=== PATIENT | male | born 1965 | race Hispanic/Latino ===

== ENCOUNTER 2017-01-07 11:34 | Emergency (ER) | payer MEDICAID ==
[2017-01-07 11:43] VITALS: TEMP 98.1
[2017-01-07 11:44] VITALS: BMI 39.5
[2017-01-07] MEDS ORDERED: Levalbuterol 1.25 MG/3 ML Inhal Soln UD IH STA ×3 (11:58→13:09)
[2017-01-07] MEDS ORDERED: guaiFENesin 200 mg/10 ml Syrup UD PO STA (11:58)
[2017-01-07] MEDS ORDERED: Ipratropium 0.02% Inhal Soln (0.5 mg/2.5 ml) UD IH STA ×2 (11:58→13:09)
--- NOTE | 2017-01-07 12:01 | ED PDOC ---
Arrival/HPI - General Chief Complaint: Chest Pain Time Seen by Provider: 01/07/17 11:45 Historian: Patient - History of Present Illness Narrative History of Present Illness (Text): 01/07/17 11:57 A 51 year old male, whose past medical history includes COPD, chronic bilateral lower extremity edema, and chronic bilateral knee pain on Methadone, presents to the emergency department complaining of chest tightness since this morning. Patient was seen at clinic prior to arrival and sent here for further evaluation. Patient reports a cough but denies any fever, chills, nausea, vomiting, abdominal pain, shortness of breath, headache, dizziness or any other complaints. Time/Duration: Other (this morning) Symptom Course: Unchanged Quality: Other Past Medical History - Provider Review Nursing Documentation Reviewed: Yes - Infectious Disease Hx of Infectious Diseases: None - Tetanus Immunization Tetanus Immunization: Unknown - Cardiac Hx Peripheral Edema: Yes - Pulmonary Hx Asthma: Yes Hx Chronic Obstructive Pulmonary Disease (COPD): Yes Hx Emphysema: Yes - Hematological/Oncological Other/Comment: lupus, itp - Musculoskeletal/Rheumatological Hx Arthritis: Yes (hand legs elbows joints) - Psychiatric Hx Psychophysiologic Disorder: No Hx Substance Use: Yes (8yrs clean) - Past Surgical History Past Surgical History: No Previous - Surgical History Other/Comment: 200 stitches to left hand, pt was 9 yrs old and fell holding a glass, can't bend index finger - Anesthesia Hx Anesthesia: Yes Hx Anesthesia Reactions: No Hx Malignant Hyperthermia: No - Suicidal Assessment Feels Threatened In Home Enviroment: No Family/Social History - Physician Review Nursing Documentation Reviewed: Yes Family/Social History: No Known Family HX Smoking Status: Light Smoker < 10 Cigarettes Daily 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) Substance used: herion Hx Substance Use Treatment: No Allergies/Home Meds Allergies/Adverse Reactions: Allergies Penicillins Allergy (Verified 01/07/17 11:41) ANAPHYLAXIS Home Medications: Home Meds Medication Instructions Recorded Confirmed Methadone HCl [Methadone HCl] 170 mg PO DAILY 01/07/17 01/07/17 Review of Systems - Physician Review All systems were reviewed & negative as marked: Yes - Review of Systems Constitutional: absent: Fevers, Night Sweats Respiratory: Cough. absent: SOB Cardiovascular: Chest Pain (tightness) Gastrointestinal: absent: Abdominal Pain, Nausea, Vomiting Neurological: absent: Headache, Dizziness Physical Exam Vital Signs Reviewed: Yes Vital Signs Temp Pulse Resp BP Pulse Ox 01/07/17 13:53 83 16 132/79 95 01/07/17 11:34 98.1 F 76 20 143/99 H 94 L Temperature: Afebrile Blood Pressure: Hypertensive Pulse: Regular Respiratory Rate: Normal Appearance: Positive for: Non-Toxic, Comfortable, Other (Morbidly obese white male) Pain Distress: None Mental Status: Positive for: Alert and Oriented X 3 - Systems Exam Head: Present: Atraumatic, Normocephalic Pupils: Present: PERRL Conjunctiva: Present: Normal Mouth: Present: Moist Mucous Membranes Pharnyx: Present: Normal. No: ERYTHEMA, EXUDATE Neck: Present: Normal Range of Motion Respiratory/Chest: Present: Wheezes (Diffuse wheezing bilaterally), Rhonchi ( Scattered rhonchi). No: Respiratory Distress, Accessory Muscle Use Cardiovascular: Present: Regular Rate and Rhythm, Normal S1, S2. No: Murmurs Abdomen: Present: Normal Bowel Sounds. No: Tenderness, Distention, Peritoneal Signs Upper Extremity: Present: Normal Inspection. No: Cyanosis, Edema Lower Extremity: Present: Normal Inspection. No: Edema, CALF TENDERNESS Neurological: Present: GCS=15, CN II-XII Intact, Speech Normal Skin: Present: Warm, Dry, Normal Color. No: Rashes Psychiatric: Present: Alert, Oriented x 3, Normal Insight, Normal Concentration Medical Decision Making ED Course and Treatment: 01/07/17 11:57 Impression: A 51 year old male with chest tightness and cough. Differential: Asthma vs ACS vs muscular pain vs anxiety Plan: -- Chest xray -- Labs -- Robitussin, Atrovent, Xopenex and Solumedrol -- Reassess and disposition Progress Notes: Report Date : 01/07/2017 13:02:13 Procedure: Chest xray Dictator : Darryl Brannon MD IMPRESSION: No active disease. 01/07/17 15:28 Patient with noted history with chest pain but diffuse wheezing; he was given steroids and nebs and lungs cleared up and says feels better. First set of CE is negative. EKG is unremarkable. However patient with poor follow up and is morbidly obese and smoker, so concern for ACS is still present and will been further observation on ER and potential tele, however he is refusing to stay for further eval and treatment; he is choosing to leave against medical advice, understanding the risk, including heart attack, , or permanent disability, and signed the ama sheet. He is fully awake, alert, and oriented as he makes this decision with fully understanding of risks and consequences of his decision. He says he will follow up outpatient and return if he worsens. Will be d/c on steroids and albuterol. - Lab Interpretations Lab Results: 01/07/17 12:00 01/07/17 12:00 Lab Results 01/07/17 13:55: Urine Opiates Screen Negative, Urine Methadone Screen Positive H , Ur Barbiturates Screen Negative, Ur Phencyclidine Scrn Negative, Ur Amphetamines Screen Negative, U Benzodiazepines Scrn Negative, U Oth Cocaine Metabols Negative, U Cannabinoids Screen Negative 01/07/17 12:00: Sodium 141, Potassium 4.3, Chloride 102, Carbon Dioxide 30, Anion Gap 13, BUN 10, Creatinine 0.7 L, Est GFR ( Amer) > 60, Est GFR ( Non-Af Amer) > 60, Random Glucose 101, Calcium 9.2, Magnesium 1.9, Total Bilirubin 0.6, AST 27, ALT 38, Alkaline Phosphatase 82, Lactate Dehydrogenase 497, Total Creatine Kinase 95, Troponin I < 0.01, NT-Pro-B Natriuret Pep 68.7, Total Protein 8.0, Albumin 4.3, Globulin 3.7, Albumin/Globulin Ratio 1.2, Lipase 56 01/07/17 12:00: PT 11.1, INR 1.01, APTT 30.8 01/07/17 12:00: WBC 8.0, RBC 4.33, Hgb 13.9 L, Hct 40.4 L, MCV 93.3, MCH 32.1, MCHC 34.4, RDW 12.4, Plt Count 200, MPV 11.2 H, Gran % 65.9, Lymph % (Auto) 21.6 L, Davie % (Auto) 7.7 H, Eos % (Auto) 4.4, Baso % (Auto) 0.4, Gran # 5.28, Lymph # 1.7, Davie # 0.6, Eos # 0.4, Baso # 0.03 I have reviewed the lab results: Yes - RAD Interpretation Radiology Orders: 01/07/17 11:57 CHEST PORTABLE [RAD] Stat - EKG Interpretation EKG Interpretation (Text): 01/07/17 15:35 NSR @ 73; no ST/T changes; normal intervals; normal axis. - Medication Orders Current Medication Orders: Discontinued Medications Guaifenesin (Robitussin) 600 mg PO ONCE STA Stop: 01/07/17 11:59 Last Admin: 01/07/17 12:16 Dose: 600 mg Ipratropium Allen (Atrovent) 0.5 mg IH STAT STA Stop: 01/07/17 11:59 Last Admin: 01/07/17 12:17 Dose: 0.5 mg Ipratropium Allen (Atrovent) 0.5 mg IH STAT STA Stop: 01/07/17 13:10 Last Admin: 01/07/17 13:20 Dose: 0.5 mg Levalbuterol HCl (Xopenex) 1.25 mg IH STAT STA Stop: 01/07/17 11:59 Last Admin: 01/07/17 12:27 Dose: 1.25 mg Levalbuterol HCl (Xopenex) 1.25 mg IH STAT STA Stop: 01/07/17 11:59 Last Admin: 01/07/17 12:27 Dose: 1.25 mg Levalbuterol HCl (Xopenex) 1.25 mg IH STAT STA Stop: 01/07/17 13:10 Last Admin: 01/07/17 13:33 Dose: 1.25 mg Methylprednisolone (Solu-Medrol) 125 mg IVP STAT STA Stop: 01/07/17 11:59 Last Admin: 01/07/17 12:17 Dose: 125 mg IVP Administration Document 01/07/17 12:17 CNR (Rec: 01/07/17 12:17 CNR [id number] Charges for Administration # of IVP Administrations 1 - Scribe Statement The provider has reviewed the documentation as recorded by the Scribjeana Davenport Provider Scribe Attestation: All medical record entries made by the Scribe were at my direction and personally dictated by me. I have reviewed the chart and agree that the record accurately reflects my personal performance of the history, physical exam, medical decision making, and the department course for this patient. I have also personally directed, reviewed, and agree with the discharge instructions and disposition. Disposition/Present on Arrival - Present on Arrival Any Indicators Present on Arrival: No History of DVT/PE: No History of Uncontrolled Diabetes: No Urinary Catheter: No History of Decub. Ulcer: No History Surgical Site Infection Following: None - Disposition Have Diagnosis and Disposition been Completed?: Yes Diagnosis: Chest pain, Asthma exacerbation Disposition: AGAINST MEDICAL ADVICE Disposition Time: 15:20 Patient Plan: Other (AGAINST MEDICAL ADVICE) Condition: STABLE Discharge Instructions (ExitCare): Chest Pain (ED), Asthma (ED), How to Stop Smoking (ED) Additional Instructions: Stop smoking. You are leaving against medical advice. You may return to the emergency department at any time. If you choose not to do so, then follow up with primary care and cardiology as soon as possible. Otherwise take the medications as prescribed. Prescriptions: Albuterol HFA [Ventolin HFA 90 mcg/actuation (8 g)] 2 puff IH Q4H #1 inhaler predniSONE [Prednisone] 2 tab PO DAILY #10 tab Referrals: [facility] [place] - Follow up with primary Forms: [employer] (Lao)
[2017-01-07 12:22] LABS: BASO # 0.03 K/mm3 (0.0-2.0); BASO % 0.4 % (0.0-3.0); EOS # 0.4 (0.0-0.7); EOS % 4.4 % (1.5-5.0); GRAN # 5.28 (1.4-6.5); GRAN % 65.9 % (50.0-68.0); HEMATOCRIT 40.4 % (42.0-52.0); LYMPH # 1.7 (1.2-3.4); LYMPH % 21.6 % (22.0-35.0); MEAN CELL VOLUME 93.3 fl (80.0-105.0); MEAN CORPUSCULAR HEMOGLOBIN 32.1 pg (25.0-35.0); MEAN CORPUSCULAR HGB CONC 34.4 g/dl (31.0-37.0); MEAN PLATELET VOLUME 11.2 fl (7.0-11.0); MONO # 0.6 (0.1-0.6); MONO % 7.7 % (1.0-6.0); RED CELL DISTRIBUTION WIDTH 12.4 % (11.5-14.5)
[2017-01-07 12:30] LABS: INR 1.01 (0.93-1.08); PARTIAL THROMBOPLASTIN TIME 30.8 Seconds (25.1-36.5)
[2017-01-07 12:33] LABS: ALB/GLOB RATIO 1.2 (1.1-1.8); ALKALINE PHOSPHATASE 82 U/L (38-126); ALT/SGPT 38 U/L (7-56); AST/SGOT 27 U/L (17-59); BILIRUBIN,TOTAL 0.6 mg/dL (0.2-1.3); BLOOD UREA NITROGEN 10 mg/dL (7-21); CALCIUM 9.2 mg/dL (8.4-10.5); CARBON DIOXIDE 30 mmol/L (21-33); CHLORIDE 102 mmol/L (98-107); GFR AFRICAN-AMERICAN > 60; GLUCOSE,RANDOM 101 mg/dL (70-110); LIPASE 56 U/L (23-300); MAGNESIUM 1.9 mg/dL (1.7-2.2); POTASSIUM 4.3 mmol/L (3.6-5.0); SODIUM 141 mmol/L (132-148)
[2017-01-07 12:45] LABS: TROPONIN I < 0.01 ng/mL
--- NOTE | 2017-01-07 13:03 | RAD ---
HISTORY: cp COMPARISON: 07/10/2014 FINDINGS: LUNGS: No active pulmonary disease. PLEURA: No significant pleural effusion identified, no pneumothorax apparent. CARDIOVASCULAR: Normal. OSSEOUS STRUCTURES: No significant abnormalities. VISUALIZED UPPER ABDOMEN: Normal. OTHER FINDINGS: None. IMPRESSION: No active disease.
[2017-01-07 13:54] VITALS: RESP 16
[2017-01-07 15:23] VITALS: BP 140/87; PULSE 89; O2SAT 93
--- NOTE | 2017-01-07 16:51 | CARD ---
APPROVED REPORT EKG Measurement Heart [id number] MI 172P-1 [id number] <Conclusion> Normal sinus rhythm Normal ECG
== END 2017-01-07 15:32 | disposition left against medical advice (07) ==
LOC: ED 11:34
DX: R07.9 Chest pain, unspecified (principal); J45.901 Unspecified asthma with (acute) exacerbation; M32.9 Systemic lupus erythematosus, unspecified; Z88.0 Allergy status to penicillin; F17.210 Nicotine dependence, cigarettes, uncomplicated; E66.01 Morbid (severe) obesity due to excess calories
CPT/HCPCS: 71010; 80053; 80324; 80345; 80346; 80349; 80353; 80358; 80361; 82550; 83615; 83690; 83735; 83880; 83992; 84484; 85025; 85610; 85730; 93005; 96374; 99285; J2930

== ENCOUNTER 2017-04-13 12:42 | Emergency (ER) | payer MEDICAID ==
[2017-04-13 12:42] VITALS: BMI 39.5
--- NOTE | 2017-04-13 13:23 | ED PDOC ---
Arrival/HPI - General Chief Complaint: Lower Extremity Problem/Injury Time Seen by Provider: 04/13/17 13:12 Historian: Patient, Family - History of Present Illness Narrative History of Present Illness (Text): 04/13/17 13:15 Anthony Boothe is a 51 year old male, whose past medical history includes COPD and arthritis, who presents to the emergency department complaining of right leg pain, mainly on the knee area that has become worse these past couple of days. Patient reports the pain radiates to his lower back and is worse when putting weight on the leg. Patient also complaints of shortness of breath. No other complaints were made. Time/Duration: < week Symptom Onset: Gradual Symptom Course: Worsening Activities at Onset: Light Past Medical History - Provider Review Nursing Documentation Reviewed: Yes - Infectious Disease Hx of Infectious Diseases: None - Tetanus Immunization Tetanus Immunization: Unknown - Cardiac Hx Peripheral Edema: Yes - Pulmonary Hx Asthma: Yes Hx Chronic Obstructive Pulmonary Disease (COPD): Yes Hx Emphysema: Yes - Hematological/Oncological Other/Comment: lupus, itp - Musculoskeletal/Rheumatological Hx Arthritis: Yes (hand legs elbows joints) - Psychiatric Hx Psychophysiologic Disorder: No Hx Substance Use: Yes (8yrs clean) - Past Surgical History Past Surgical History: No Previous - Surgical History Other/Comment: 200 stitches to left hand, pt was 9 yrs old and fell holding a glass, can't bend index finger - Anesthesia Hx Anesthesia: Yes Hx Anesthesia Reactions: No Hx Malignant Hyperthermia: No - Suicidal Assessment Feels Threatened In Home Enviroment: No Family/Social History - Physician Review Nursing Documentation Reviewed: Yes Family/Social History: Unknown Family HX Smoking Status: Light Smoker < 10 Cigarettes Daily 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) Substance used: herion Hx Substance Use Treatment: No Allergies/Home Meds Allergies/Adverse Reactions: Allergies Penicillins Allergy (Verified 04/13/17 13:11) ANAPHYLAXIS Review of Systems - Physician Review All systems were reviewed & negative as marked: Yes - Review of Systems Constitutional: absent: Fevers Respiratory: SOB Cardiovascular: absent: Chest Pain Gastrointestinal: absent: Abdominal Pain Musculoskeletal: Other (right leg pain ) Physical Exam Vital Signs Reviewed: Yes Vital Signs Temp Pulse Resp BP Pulse Ox 04/13/17 15:01 162/90 H 04/13/17 13:08 97.9 F 78 18 164/93 H 96 Temperature: Afebrile Blood Pressure: Hypertensive Pulse: Regular Respiratory Rate: Normal Appearance: Positive for: Well-Appearing, Non-Toxic, Comfortable Pain Distress: None Mental Status: Positive for: Alert and Oriented X 3 - Systems Exam Head: Present: Atraumatic, Normocephalic Pupils: Present: PERRL Extroacular Muscles: Present: EOMI Conjunctiva: Present: Normal Mouth: Present: Moist Mucous Membranes Respiratory/Chest: Present: Good Air Exchange, Other (congestion bilaterally). No: Clear to Auscultation, Respiratory Distress, Accessory Muscle Use Cardiovascular: Present: Regular Rate and Rhythm, Normal S1, S2. No: Murmurs Abdomen: Present: Normal Bowel Sounds. No: Tenderness, Distention, Peritoneal Signs Upper Extremity: Present: Normal Inspection. No: Cyanosis, Edema Lower Extremity: Present: Edema (bilateral), NORMAL PULSES, Normal ROM, Tenderness (diffused tenderness to palpation bilaterally), Swelling, Neurovascularly Intact, Capillary Refill < 2 s. No: Normal Inspection, Cyanosis , Erythema, Deformity Neurological: Present: GCS=15, CN II-XII Intact, Speech Normal Skin: Present: Warm, Dry, Normal Color. No: Rashes Psychiatric: Present: Alert, Oriented x 3, Normal Insight, Normal Concentration Medical Decision Making ED Course and Treatment: 04/13/17 Impression: 51 year old male with edema and bilaterally diffused tenderness to palpation on lower extremities Plan: -- Labs -- Reassess and disposition Progress Notes: - Lab Interpretations Lab Results: 04/13/17 14:00 04/13/17 14:00 Lab Results 04/13/17 14:00: Sodium 145, Potassium 4.4, Chloride 105, Carbon Dioxide 27, Anion Gap 17, BUN 16, Creatinine 0.6 L, Est GFR ( Amer) > 60, Est GFR ( Non-Af Amer) > 60, Random Glucose 120 H, Calcium 9.0, Total Bilirubin 0.4, AST 36, ALT 39, Alkaline Phosphatase 71, Total Protein 8.0, Albumin 4.2, Globulin 3.7, Albumin/Globulin Ratio 1.1 04/13/17 14:00: WBC Cancelled, RBC Cancelled, Hgb Cancelled, Hct Cancelled, MCV Cancelled, MCH Cancelled, MCHC Cancelled, RDW Cancelled, Plt Count Cancelled, MPV Cancelled, Gran % Cancelled, Lymph % (Auto) Cancelled, Orange % (Auto) Cancelled, Eos % (Auto) Cancelled, Baso % (Auto) Cancelled, Gran # Cancelled, Lymph # (Auto) Cancelled, Orange # (Auto) Cancelled, Eos # (Auto) Cancelled, Baso # (Auto) Cancelled I have reviewed the lab results: Yes - RAD Interpretation Radiology Orders: 04/13/17 13:34 DUPLEX LOWER EXTRM VEIN BILAT [US] Stat 04/13/17 13:35 CHEST ONE VIEW [RAD] Stat - Medication Orders Current Medication Orders: Discontinued Medications Albuterol Sulfate (Albuterol 0.083% Inhal Cynthia (2.5 Mg/3 Ml) Ud) 2.5 mg INH STAT STA Stop: 04/13/17 13:37 Last Admin: 04/13/17 15:01 Dose: 2.5 mg Furosemide (Lasix) 40 mg IM STAT STA Stop: 04/13/17 14:12 Last Admin: 04/13/17 15:01 Dose: 40 mg MAR Blood Pressure Document 04/13/17 15:01 ROGER (Rec: 04/13/17 15:02 ROGER [id number]) Blood Pressure Blood Pressure (100/60-150/90) 162/90 IM Administration Charges Document 04/13/17 15:01 ROGER (Rec: 04/13/17 15:02 ROGER [id number]) Charges for Administration # of IM Administrations 1 Tramadol HCl (Ultram) 50 mg PO STAT STA Stop: 04/13/17 13:38 Last Admin: 04/13/17 15:03 Dose: 50 mg MAR Pain Assessment Document 04/13/17 15:03 ROGER (Rec: 04/13/17 15:03 ROGER [id number]) Pain Reassessment Is this a pain reassessment? No Sleep Is patient sleeping during reassessment? No Presence of Pain Presence of Pain Yes - Scribe Statement The provider has reviewed the documentation as recorded by the Scribe Asuncion Abad Provider Scribe Attestation: All medical record entries made by the Scribe were at my direction and personally dictated by me. I have reviewed the chart and agree that the record accurately reflects my personal performance of the history, physical exam, medical decision making, and the department course for this patient. I have also personally directed, reviewed, and agree with the discharge instructions and disposition. Disposition/Present on Arrival - Present on Arrival Any Indicators Present on Arrival: No History of DVT/PE: No History of Uncontrolled Diabetes: No Urinary Catheter: No History of Decub. Ulcer: No History Surgical Site Infection Following: None - Disposition Have Diagnosis and Disposition been Completed?: Yes Diagnosis: Peripheral edema, Arthritis Disposition: HOME/ ROUTINE Disposition Time: 15:30 Patient Plan: Discharge Patient Problems: Current Active Problems Problem Status Onset Arthritis Acute Peripheral edema Acute Condition: STABLE Prescriptions: Albuterol HFA [Ventolin HFA 90 mcg/actuation (8 g)] 2 puff IH [id number] PRN #1 puff PRN Reason: Cough Budesonide/Formoterol Fumarate [Symbicort 80-4.5 Mcg Inhaler] 6.9 gm IH BID #1 hfa.aer.ad Furosemide [Lasix] 20 mg PO DAILY #10 udc traMADol [Ultram] 50 mg PO TID PRN #20 tab PRN Reason: Pain, Moderate (4-7) Referrals: Jose Chou Jr., MD [Primary Care Provider] - Follow up with primary Forms: [employer] (Spanish)
[2017-04-13] MEDS ORDERED: Albuterol 0.083% Inhal Sol (2.5 mg/3 mL) UD INH STA (13:36)
[2017-04-13 14:28] LABS: ALB/GLOB RATIO 1.1 (1.1-1.8); ALBUMIN 4.2 g/dL (3.0-4.8); GFR AFRICAN-AMERICAN > 60; GFR NON-AFRICAN AMERICAN > 60
[2017-04-13 14:29] LABS: ALT/SGPT 39 U/L (7-56); AST/SGOT 36 U/L (17-59); BLOOD UREA NITROGEN 16 mg/dL (7-21)
[2017-04-13 15:43] VITALS: BP 147/90; PULSE 89; RESP 20; TEMP 97.8; O2SAT 94
--- NOTE | 2017-04-13 15:44 | RAD ---
PROCEDURE: CHEST RADIOGRAPH, 1 VIEW HISTORY: sob COMPARISON: 01/07/2017 FINDINGS: LUNGS: Clear. PLEURA: No pneumothorax or pleural fluid seen. CARDIOVASCULAR: Normal. OSSEOUS STRUCTURES: No significant abnormalities. VISUALIZED UPPER ABDOMEN: Normal. OTHER FINDINGS: None. IMPRESSION: No active disease.
--- NOTE | 2017-04-13 17:52 | CARD ---
APPROVED REPORT EKG Measurement Heart [id number] [id number] <Conclusion> Normal sinus rhythm Normal ECG
--- NOTE | 2017-04-14 15:29 | US ---
HISTORY: Leg pain and swelling. Evaluate for DVT PHYSICIAN(S): Nelson Stoddard MD. TECHNIQUE: Duplex sonography and color-flow Doppler with graded compression were used to evaluate the deep venous systems of both lower extremities. The exam is somewhat limited by body habitus. FINDINGS: The visualized deep venous systems of both lower extremities are sonographically normal and compressible. Normal wave forms and augmentation are seen. There is no sonographic evidence for deep venous thrombosis in the visualized segments of both lower extremities. IMPRESSION: No sonographic evidence for deep venous thrombosis in the visualized segments of both lower extremities.
== END 2017-04-13 15:44 | disposition home or self-care (01) ==
LOC: ED 12:42
DX: R60.0 Localized edema (principal); M19.90 Unspecified osteoarthritis, unspecified site; M32.9 Systemic lupus erythematosus, unspecified; F17.210 Nicotine dependence, cigarettes, uncomplicated
CPT/HCPCS: 71045; 80053; 93005; 93970; 96372; 99282; J1940

== ENCOUNTER 2017-06-07 07:23 | Observation (INO) | payer MEDICAID ==
[2017-06-07 07:24] VITALS: BMI 39.5
[2017-06-07] MEDS ORDERED: DiphenhydrAMINE 50 mg/ml Inj IVP STA (07:46)
--- NOTE | 2017-06-07 07:55 | ED PDOC ---
Arrival/HPI - General Historian: Patient - History of Present Illness Time/Duration: 24 hours Symptom Course: Worsening Quality: Tightness <Felton Rizo - Last Filed: 06/07/17 09:48> <Roland Cabrera - Last Filed: 06/07/17 11:01> - General Chief Complaint: ENT Problem Time Seen by Provider: 06/07/17 07:26 - History of Present Illness Narrative History of Present Illness (Text): 06/07/17 07:49 Patient is a 51M with a PMH of COPD and chronic lower extremity edema comes to the ED BIBA with a CC of burning in his throat and worsening SOB. He states that he woke up with the feelnig of bur nnign in his through and noticed that his uvula was abnormally large. This has happened to him one time before. He states that he felt as if it might obstruct his airway. He is also complaining of worsening SOB for 2 weeks and attributes it to worsening of his COPD. He thinks he needs to be on home O2. He denies any worsening of the lower extremity edema. He states he has chest tightness for many years associated with his SOB. No fevers or chills. No nausea vomiting diarrhea. No diaphoresis. No rashes. Just traveled from [place]. Denies any allergic triggers 06/07/17 08:19 Patient admits to being on methadone 170 daily (Felton Rioz) Past Medical History - Infectious Disease Hx of Infectious Diseases: None - Tetanus Immunization Tetanus Immunization: Unknown - Cardiac Hx Cardiac Disorders: Yes Hx Peripheral Edema: Yes - Pulmonary Hx Respiratory Disorders: Yes Hx Asthma: Yes Hx Chronic Obstructive Pulmonary Disease (COPD): Yes Hx Emphysema: Yes - Neurological Hx Neurological Disorder: No - HEENT Hx HEENT Disorder: No - Renal Hx Renal Disorder: No - Endocrine/Metabolic Hx Endocrine Disorders: No - Hematological/Oncological Hx Blood Disorders: No Other/Comment: lupus, itp - Integumentary Hx Dermatological Disorder: No - Musculoskeletal/Rheumatological Hx Musculoskeletal Disorders: Yes Hx Arthritis: Yes (hand legs elbows joints) - Gastrointestinal Hx Gastrointestinal Disorders: Yes - Genitourinary/Gynecological Hx Genitourinary Disorders: No - Psychiatric Hx Psychophysiologic Disorder: No Hx Substance Use: Yes (8yrs clean) - Past Surgical History Past Surgical History: No Previous - Surgical History Other/Comment: 200 stitches to left hand, pt was 9 yrs old and fell holding a glass, can't bend index finger - Anesthesia Hx Anesthesia: Yes Hx Anesthesia Reactions: No Hx Malignant Hyperthermia: No - Suicidal Assessment Feels Threatened In Home Enviroment: No <SallieFelton Last Filed: 06/07/17 09:48> - Provider Review Nursing Documentation Reviewed: Yes <Roland Cabrera - Last Filed: 06/07/17 11:01> Family/Social History Family/Social History: Unknown Family HX Smoking Status: Light Smoker < 10 Cigarettes Daily Hx Alcohol Use: No (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) Substance used: herion Hx Substance Use Treatment: No <SallieFelton Filed: 06/07/17 09:48> - Physician Review Nursing Documentation Reviewed: Yes <Roland Cabrera - Last Filed: 06/07/17 11:01> Allergies/Home Meds <SallieFelton Filed: 06/07/17 09:48> <Roland Cabrera - Last Filed: 06/07/17 11:01> Allergies/Adverse Reactions: Allergies Penicillins Allergy (Verified 04/13/17 13:11) ANAPHYLAXIS Review of Systems - Review of Systems Constitutional: Normal Eyes: Normal ENT: Normal Respiratory: Cough, Wheezing Cardiovascular: Edema. absent: Chest Pain, Calf Pain, Syncope Gastrointestinal: absent: Diarrhea, Nausea, Vomiting Genitourinary Male: Normal Musculoskeletal: Normal Skin: Normal Neurological: Normal Endocrine: Normal Hemo/Lymphatic: Normal Psychiatric: Normal <SallieFelton Filed: 06/07/17 09:48> Physical Exam Vital Signs Reviewed: Yes Temperature: Afebrile Blood Pressure: Hypertensive Pulse: Tachycardic Respiratory Rate: Normal Appearance: Positive for: Uncomfortable Pain Distress: None Mental Status: Positive for: Alert and Oriented X 3 - Systems Exam Head: Present: Atraumatic, Normocephalic Pupils: Present: PERRL Extroacular Muscles: Present: EOMI Conjunctiva: Present: Normal Ears: Present: Normal Pharnyx: Present: Muffled/Hoarse Voice, Soft Palate/Uvular Edema. No: ERYTHEMA , EXUDATE, TONSILS ENLARGED, Peritonsilar Swelling, Uvular Deviation, Strider Respiratory/Chest: Present: Good Air Exchange, Wheezes (all of expiration). No : Clear to Auscultation, Respiratory Distress, Accessory Muscle Use Cardiovascular: Present: Regular Rate and Rhythm, Normal S1, S2. No: Murmurs Abdomen: Present: Normal Bowel Sounds. No: Tenderness, Distention, Peritoneal Signs Upper Extremity: Present: Normal Inspection. No: Cyanosis, Edema Lower Extremity: Present: Normal Inspection, Edema (2+ pitting b/l) Neurological: Present: GCS=15, CN II-XII Intact, Speech Normal Skin: Present: Warm, Dry, Rashes, Normal Color Psychiatric: Present: Alert, Oriented x 3, Normal Insight, Normal Concentration <Felton Rizo - Last Filed: 06/07/17 09:48> <Roland Cabrera - Last Filed: 06/07/17 11:01> Vital Signs Temp Pulse Resp BP Pulse Ox 06/07/17 10:53 79 18 137/81 93 L 06/07/17 09:34 83 21 132/75 91 L 06/07/17 08:48 94 H 18 147/97 H 96 06/07/17 08:30 98 H 18 165/71 H 96 06/07/17 07:36 98.0 F 100 H 20 168/73 H 95 Medical Decision Making <Felton Rizo - Last Filed: 06/07/17 09:48> - Lab Interpretations I have reviewed the lab results: Yes - RAD Interpretation Baseball Glove Shaper: Radiologist - EKG Interpretation Interpreted by ED Physician: Yes Type: 12 lead EKG <Roland Cabrera - Last Filed: 06/07/17 11:01> ED Course and Treatment: 06/07/17 07:59 51M COPD exacerbation and Uvulitis - benadryl 25mg IV - solumedrol 125 IV - duonebs q15 x3 - cxc, ekg, cbc, cmp, cardiac iso - reeval and dispo 06/07/17 09:03 - CXR shows possible blunting of the L. costophrenic angle 06/07/17 09:37 - Official read on CXR states no inflitrate 06/07/17 09:48 - Spoke with hospitalist. Ok with admission to [facility] (Felton Rizo) 06/07/17 In agreement with resident note, which includes further HPI details. Patient was seen and evaluated with resident, came up with plan and treatment together. DDx: COPD Exacerbation and Uvulitis. CXR negative. Labs reviewed. Rapid strep and Influenza negative. Patient improving but still having symptoms despite treatment. Case was discussed with Dr. Khan who will place on med/surg observation. (Roland Cabrera) - Lab Interpretations Lab Results: 06/07/17 08:36 06/07/17 08:36 Lab Results 06/07/17 09:30: Grp A Beta Strep Ag Negative 06/07/17 09:30: Influenza Typ A,B (EIA) Negative for flu a/b 06/07/17 08:36: Sodium 141, Potassium 4.3, Chloride 104, Carbon Dioxide 30, Anion Gap 12, BUN 18, Creatinine 0.7 L, Est GFR ( Amer) > 60, Est GFR ( Non-Af Amer) > 60, Random Glucose 107, Calcium 9.1, Magnesium 1.9, Total Bilirubin 0.4, AST 32, ALT 49, Alkaline Phosphatase 86, Lactate Dehydrogenase 604, Total Creatine Kinase 118, Troponin I < 0.01, NT-Pro-B Natriuret Pep 17.2, Total Protein 8.0, Albumin 4.1, Globulin 3.9, Albumin/Globulin Ratio 1.0 L 06/07/17 08:36: WBC 8.7, RBC 4.40, Hgb 14.0, Hct 41.8 L, MCV 95.0, MCH 31.8, MCHC 33.5, RDW 12.6, Plt Count 149, MPV 11.4 H, Gran % 69.4 H, Lymph % (Auto) 22.1, Cavalier % (Auto) 5.7, Eos % (Auto) 2.5, Baso % (Auto) 0.3, Gran # 6.00, Lymph # (Auto) 1.9, Cavalier # (Auto) 0.5, Eos # (Auto) 0.2, Baso # (Auto) 0.03 - RAD Interpretation Radiology Orders: 06/07/17 07:46 CHEST PORTABLE [RAD] Stat - Medication Orders Current Medication Orders: Acetaminophen (Tylenol 325mg Tab) 650 mg PO Q6 PRN PRN Reason: Pain, moderate (4-7) Heparin Sodium (Porcine) (Heparin) 5,000 units SC Q12 ROSY PRN Reason: Protocol Pantoprazole Sodium (Protonix Ec Tab) 40 mg PO DAILY ROSY Discontinued Medications Albuterol/Ipratropium (Duoneb 3 Mg/0.5 Mg (3 Ml) Ud) 3 ml IH Q15M ROSY Stop: 06/07/17 08:31 Last Admin: 06/07/17 08:51 Dose: 3 ml Diphenhydramine HCl (Benadryl) 25 mg IVP STAT STA Stop: 06/07/17 07:47 Last Admin: 06/07/17 08:20 Dose: 25 mg IVP Administration Document 06/07/17 08:20 OCS (Rec: 06/07/17 08:20 OCS [id number]) Charges for Administration # of IVP Administrations 1 Diphenhydramine HCl (Benadryl) 25 mg PO STAT STA Stop: 06/07/17 09:10 Last Admin: 06/07/17 09:34 Dose: 25 mg Methylprednisolone (Solu-Medrol) 125 mg IVP STAT STA Stop: 06/07/17 07:47 Last Admin: 06/07/17 08:20 Dose: 125 mg IVP Administration Document 06/07/17 08:20 OCS (Rec: 06/07/17 08:20 OCS [id number]) Charges for Administration # of IVP Administrations 1 - PA / ELECTRICIAN FRONT / Resident Statement / has reviewed & agrees with the documentation as recorded. / has examined the patient and agrees with the treatment plan. <Felton Rizo - Last Filed: 06/07/17 09:48> - PA / ELECTRICIAN FRONT / Resident Statement / has reviewed & agrees with the documentation as recorded. MD/ has examined the patient and agrees with the treatment plan. - Scribe Statement The provider has reviewed the documentation as recorded by the Scribe <Roland Cabrera - Last Filed: 06/07/17 11:01> - Scribe Statement Asuncion Abad Provider Scribe Attestation: All medical record entries made by the Scribe were at my direction and personally dictated by me. I have reviewed the chart and agree that the record accurately reflects my personal performance of the history, physical exam, medical decision making, and the department course for this patient. I have also personally directed, reviewed, and agree with the discharge instructions and disposition. (Roland Cabrera) Disposition/Present on Arrival - Present on Arrival Any Indicators Present on Arrival: Yes History of DVT/PE: No History of Uncontrolled Diabetes: No Urinary Catheter: No History of Decub. Ulcer: No History Surgical Site Infection Following: None - Disposition Have Diagnosis and Disposition been Completed?: Yes Disposition Time: 09:49 Patient Plan: Admission <Felton Rizo - Last Filed: 06/07/17 09:48> - Present on Arrival Any Indicators Present on Arrival: No - Disposition Have Diagnosis and Disposition been Completed?: Yes <Roland Cabrera - Last Filed: 06/07/17 11:01> - Disposition Diagnosis: COPD exacerbation Disposition: HOSPITALIZED Patient Problems: Current Active Problems Problem Status Onset COPD exacerbation Acute Condition: GUARDED
[2017-06-07] MEDS: Albuterol-Ipratrop 3 mg / 0.5 (3 ml) UD IH SCH ×5 (08:20→22:42)
[2017-06-07] MEDS ORDERED: DiphenhydrAMINE 12.5 mg/5 ml LIQ UD (5 ml) PO STA (09:09)
[2017-06-07 09:14] LABS: BASO # 0.03 K/mm3 (0.0-2.0); BASO % 0.3 % (0.0-3.0); EOS # 0.2 (0.0-0.7); EOS % 2.5 % (1.5-5.0); GRAN % 69.4 % (50.0-68.0); LYMPH # 1.9 (1.2-3.4); LYMPH % 22.1 % (22.0-35.0); MEAN CORPUSCULAR HEMOGLOBIN 31.8 pg (25.0-35.0); MEAN CORPUSCULAR HGB CONC 33.5 g/dl (31.0-37.0); MEAN PLATELET VOLUME 11.4 fl (7.0-11.0); MONO # 0.5 (0.1-0.6); MONO % 5.7 % (1.0-6.0); RBC 4.4 10^6/uL (3.5-6.1); RED CELL DISTRIBUTION WIDTH 12.6 % (11.5-14.5); WHITE BLOOD COUNT 8.7 10^3/ul (4.5-11.0)
[2017-06-07 09:30] LABS: ALBUMIN 4.1 g/dL (3.0-4.8); ALT/SGPT 49 U/L (7-56); AST/SGOT 32 U/L (17-59); BLOOD UREA NITROGEN 18 mg/dL (7-21); CALCIUM 9.1 mg/dL (8.4-10.5); GFR AFRICAN-AMERICAN > 60; GFR NON-AFRICAN AMERICAN > 60
--- NOTE | 2017-06-07 09:33 | RAD ---
HISTORY: SOB COMPARISON: 04/13/2017 FINDINGS: LUNGS: No active pulmonary disease. PLEURA: No significant pleural effusion identified, no pneumothorax apparent. CARDIOVASCULAR: Shortness of breath No radiographic findings to suggest acute or significant cardiovascular disease. OSSEOUS STRUCTURES: No significant abnormalities. VISUALIZED UPPER ABDOMEN: Normal. OTHER FINDINGS: None. IMPRESSION: No active disease. No significant interval change compared to the prior examination(s).
[2017-06-07 09:41] LABS: B-TYPE NATRIURETIC PEPTIDE 17.2 pg/mL (0-450); TROPONIN I < 0.01 ng/mL
--- NOTE | 2017-06-07 11:12 | CP.PCM.HP ---
<Laura Medrano - Last Filed: 06/07/17 13:28> History of Present Illness - History of Present Illness History of Present Illness: PGY-2 H&P for hospitalist service 51 Male with a PMH of COPD and chronic lower extremity edema comes to the ED with complaint of burning in his throat and worsening SOB. He states that he woke up with the feeling of burning in the back of his throat and noticed that his uvula was abnormally large. He states that he tried to drink water but it was unable to help his symptoms. This has happened to him one time before, however not as severe. He states that he felt as if it might be obstructing his airway. He denies any allergic triggers He is also complaining of worsening SOB with chest tightness and attributes it to worsening of his COPD. He states that it occurs mostly when he is laying down. Patient thinks he needs to be on home O2, however continues to smoke half ppd. Patient states that he moved from [facility] about 5 months ago. He states that he was no bipap and other medication but has not been complaint since he moved. He denies any worsening of the lower extremity edema. He states he has had chest tightness and sob for many years. Patient also reports epigastric pain. He states that he take aleve almost daily for his arthritis. Denies fevers or chills, nausea, vomiting, diarrhea, diaphoresis, rashes, recent illnesses. Patient admits to being on methadone 170 daily and took his am dose. PMH: COPD and chronic lower extremity edema, SHERI PSH: hand surgery social history: smokes 1/2 ppd, denies alcohol use, former IVDA with heroin clean for 8 years family history: mother heart disease, brother recent [place] with triple bypass at age 46 allergy: penicillin- fevers Present on Admission - Present on Admission Any Indicators Present on Admission: No Review of Systems - Constitutional Constitutional: Sleep Apnea, Weight Gain. absent: Chills, Fever, Weakness - EENT Eyes: absent: Change in Vision Nose/Mouth/Throat: Hoarsness, Sore Throat, Throat Swelling. absent: Nasal Congestion, Nasal Discharge - Cardiovascular Cardiovascular: Chest Pain, Dyspnea. absent: Irregular Heart Rhythm, Palpitations, Syncope - Respiratory Respiratory: Dyspnea, Wheezing. absent: Cough - Gastrointestinal Gastrointestinal: Abdominal Pain. absent: Constipation, Cramping, Diarrhea, Nausea, Vomiting - Genitourinary Genitourinary: absent: Change in Urinary Stream, Difficulty Urinating, Dysuria - Musculoskeletal Musculoskeletal: Arthralgias. absent: Back Pain, Numbness, Tingling - Integumentary Integumentary: Swelling. absent: Pruritus, Rash, Skin Ulcer, Sores - Neurological Neurological: absent: Dizziness, Numbness, Headaches, Syncope, Weakness - Hematologic/Lymphatic Hematologic: absent: Easy Bleeding, Easy Bruising Past Patient History - Infectious Disease Hx of Infectious Diseases: None - Tetanus Immunizations Tetanus Immunization: Unknown - Past Social History Smoking Status: Light Smoker < 10 Cigarettes Daily - CARDIAC Hx Cardiac Disorders: Yes Hx Peripheral Edema: Yes - PULMONARY Hx Respiratory Disorders: Yes Hx Asthma: Yes Hx Chronic Obstructive Pulmonary Disease (COPD): Yes Hx Emphysema: Yes - NEUROLOGICAL Hx Neurological Disorder: No - HEENT Hx HEENT Problems: No - RENAL Hx Chronic Kidney Disease: No - ENDOCRINE/METABOLIC Hx Endocrine Disorders: No - HEMATOLOGICAL/ONCOLOGICAL Hx Blood Disorders: No Other/Comment: lupus, itp - INTEGUMENTARY Hx Dermatological Problems: No - MUSCULOSKELETAL/RHEUMATOLOGICAL Hx Musculoskeletal Disorders: Yes Hx Arthritis: Yes (hand legs elbows joints) - GASTROINTESTINAL Hx Gastrointestinal Disorders: Yes - GENITOURINARY/GYNECOLOGICAL Hx Genitourinary Disorders: No - PSYCHIATRIC Hx Psychophysiologic Disorder: No Hx Substance Use: Yes (8yrs clean) - SURGICAL HISTORY Other/Comment: 200 stitches to left hand, pt was 9 yrs old and fell holding a glass, can't bend index finger - ANESTHESIA Hx Anesthesia: Yes Hx Anesthesia Reactions: No Hx Malignant Hyperthermia: No Meds Allergies/Adverse Reactions: Allergies Allergy/AdvReac Type Severity Reaction Status Date / Time Penicillins Allergy ANAPHYLAXIS Verified 04/13/17 13:11 Physical Exam - Constitutional Appears: No Acute Distress - Head Exam Head Exam: ATRAUMATIC, NORMOCEPHALIC - Eye Exam Eye Exam: Normal appearance - ENT Exam Additional comments: enlarged tongue and uvula, grade 3 mallampati score, mild erythema - Respiratory Exam Respiratory Exam: Rhonchi, NORMAL BREATHING PATTERN. absent: Decreased Breath Sounds, Respiratory Distress - Cardiovascular Exam Cardiovascular Exam: REGULAR RHYTHM, +S1, +S2. absent: Tachycardia, Diastolic murmur, Systolic Murmur - GI/Abdominal Exam GI & Abdominal Exam: Normal Bowel Sounds, Soft, Tenderness (epigastric). absent : Distended, Firm - Extremities Exam Extremities exam: Negative for: tenderness Additional comments: trace edema - Neurological Exam Neurological exam: Alert, CN II-XII Intact, Oriented x3, Reflexes Normal - Psychiatric Exam Psychiatric exam: Normal Affect, Normal Mood - Skin Skin Exam: Dry, Intact, Normal Color, Warm Results - Vital Signs Recent Vital Signs: Last Vital Signs Temp 98.0 F 06/07/17 07:36 Pulse 79 06/07/17 10:53 Resp 18 06/07/17 10:53 BP 137/81 06/07/17 10:53 Pulse Ox 93 L 06/07/17 10:53 - Labs Result Diagrams: 06/07/17 08:36 06/07/17 08:36 Assessment & Plan - Assessment and Plan (Free Text) Assessment: 51 Male with a PMH of COPD and chronic lower extremity edema comes to the ED with complaint of burning and swelling of his throat and worsening SOB found to have COPD exacerbation, chest pain will rule out ACS, and GERD. Plan: 1. uvulitis, swelling - CT of soft tissue neck - consider ENT consult - solu-medrol for swelling/ inflammation - nursing speech and swallow - NPO pending CT 2. chest pain r/o acs - remote tele - low agusto score - first trop neg, trend trops - echo - cardiology consult - asa 81 g daily, will start today if patient passes nursing swallow evaluation - lipid panel - hgba1c 3. copd exacerbation - received solu-medrol 125mg in ED, continue 40 q12 - nasal cannula as needed - duonebs q6 tracy and q2 prn - levaquin, patient allergic to Penicillins - consider pulm consult 4. GERD - protonix - avoid NSAIDs - continue to monitor 5. sheri - previously on bipap machine - bipap at night - consider pulm consult 6. h/o IVDA - patient states he took his methadone this morning - will call to confirm dose ppx - GI- protonix - DVT- heparin <Meggan Khan - Last Filed: 06/07/17 17:43> Results - Vital Signs Recent Vital Signs: Last Vital Signs Temp 97.8 F 06/07/17 11:45 Pulse 82 06/07/17 14:00 Resp 20 06/07/17 11:45 BP 152/90 H 06/07/17 11:45 Pulse Ox 94 L 06/07/17 11:45 - Labs Result Diagrams: 06/07/17 08:36 06/07/17 08:36 Labs: Laboratory Results - last 24 hr 06/07/17 06/07/17 06/07/17 11:20 14:40 14:55 Troponin I < 0.01 Triglycerides 153 Cholesterol 160 LDL Cholesterol Direct 81 HDL Cholesterol 42 Urine Opiates Screen Negative Urine Methadone Screen Positive H Ur Barbiturates Screen Negative Ur Phencyclidine Scrn Negative Ur Amphetamines Screen Negative U Benzodiazepines Scrn Positive U Oth Cocaine Metabols Negative U Cannabinoids Screen Positive H Attending/Attestation - Attestation I have personally seen and examined this patient.: Yes I have fully participated in the care of the patient.: Yes I have reviewed all pertinent clinical information: Yes Notes (Text): 06/07/17 17:36 51 year old male with past medical history of COPD and SHERI who presents with complaint of chest pain, shortness of breath and throat pain with difficulty swallowing. He is admitted for COPD exacerbation and started on iv steroids and antibiotics. Serial cardiac enzymes are ordered to rule out ACS. Will obtain echocardiogram. CT soft tissue neck is ordered as well with ENT evaluation. Rapid strep and flu tests were negative. Continue with bipap at night. Meggan Khan MD Hospitalist.
[2017-06-07] MEDS: Pantoprazole 40 mg EC Tab PO SCH (11:14)
[2017-06-07 11:16] VITALS: RESP 20
[2017-06-07] MEDS ORDERED: Albuterol-Ipratrop 3 mg / 0.5 (3 ml) UD IH PRN (11:39)
[2017-06-07 12:18] LABS: HDL CHOLESTEROL 42 mg/dL (29-60)
[2017-06-07 12:29] LABS: LDL CHOLESTEROL 81 mg/dL (0-129)
[2017-06-07 15:38] LABS: PHENCYCLIDINE, UR NEGATIVE (NEGATIVE)
[2017-06-07 15:40] LABS: BARBITURATES, UR NEGATIVE (NEGATIVE); BENZODIAZEPINES, UR POSITIVE (NEGATIVE); OPIATES, UR NEGATIVE (NEGATIVE)
--- NOTE | 2017-06-07 16:54 | CT ---
PROCEDURE: CT NECK WITHOUT CONTRAST HISTORY: swelling COMPARISON: None. TECHNIQUE: CT of the neck without intravenous contrast. Coronal and sagittal reformats generated. Radiation dose: DLP 465.90 mGy-cm This CT exam was performed using one or more of the following dose reduction techniques: Automated exposure control, adjustment of the mA and/or kV according to patient size, and/or use of iterative reconstruction technique. FINDINGS: NASOPHARYNX: Unremarkable. SUPRAHYOID NECK: Unremarkable oropharynx, oral cavity, parapharyngeal space and retropharyngeal space. Mild soft tissue prominence of the uvula. No adjacent oral pharyngeal or nasopharyngeal Unremarkable palatine and lingual tonsils INFRAHYOID NECK: Unremarkable larynx, hypopharynx, and supraglottic space. Vocal cords intact. MASS: 9 mm left vallecular cyst GLANDS: Parotid and submandibular glands unremarkable. Normal size thyroid gland, without nodule. LYMPH NODES: Normal. No lymphadenopathy. CERVICAL SPINE: No fracture or focal lesion. OTHER FINDINGS: None. IMPRESSION: 1. Soft tissue prominence of the uvula. No evidence of nasopharyngeal or oropharyngeal mass/inflammatory process. 2. 9 mm left follicular cysts. Report
[2017-06-07] MEDS ORDERED: MethylPREDNISolone 40 mg Vial IVP SCH (22:00)
[2017-06-08] MEDS: Albuterol-Ipratrop 3 mg / 0.5 (3 ml) UD IH SCH ×2 (03:35→08:02)
[2017-06-08 07:11] LABS: BASO # 0.01 K/mm3 (0.0-2.0); BASO % 0.1 % (0.0-3.0); GRAN % 90.4 % (50.0-68.0); HEMOGLOBIN 13.3 g/dL (14.0-18.0); LYMPH # 1.2 (1.2-3.4); LYMPH % 6.3 % (22.0-35.0); MEAN CELL VOLUME 93.3 fl (80.0-105.0); MEAN CORPUSCULAR HEMOGLOBIN 31.6 pg (25.0-35.0); MEAN CORPUSCULAR HGB CONC 33.8 g/dl (31.0-37.0); MEAN PLATELET VOLUME 11.2 fl (7.0-11.0); MONO # 0.6 (0.1-0.6); MONO % 3.2 % (1.0-6.0); PLATELET COUNT 217 10^3/uL (120.0-450.0); RBC 4.21 10^6/uL (3.5-6.1); RED CELL DISTRIBUTION WIDTH 12.8 % (11.5-14.5); WHITE BLOOD COUNT 19.6 10^3/ul (4.5-11.0)
[2017-06-08 07:30] LABS: ALBUMIN 4.1 g/dL (3.0-4.8); ALT/SGPT 45 U/L (7-56); AST/SGOT 25 U/L (17-59); BLOOD UREA NITROGEN 18 mg/dL (7-21); CALCIUM 9.2 mg/dL (8.4-10.5); GFR AFRICAN-AMERICAN > 60; GFR NON-AFRICAN AMERICAN > 60
[2017-06-08] MEDS ORDERED: MethylPREDNISolone 40 mg Vial IVP SCH ×3 (08:19→22:00)
[2017-06-08 08:35] VITALS: BP 149/86; TEMP 97.9; O2SAT 96
[2017-06-08 09:03] LABS: LYMPHOCYTE 8 % (22.0-35.0); MONOCYTE 4 % (1.0-6.0); NEUTROPHIL 88 % (50.0-70.0)
--- NOTE | 2017-06-08 09:05 | CP.PCM.PN ---
Subjective - Date & Time of Evaluation Date of Evaluation: 06/08/17 Time of Evaluation: 07:30 - Subjective Subjective: Radha Lomax DO PGY1 - IM Progress Note Patient seen and examined at bedside. Per nursing staff, no acute events overnight. Patient requesting methadone 170mg which he takes with [facility]. Today, I called ([phone]) and spoke to physician there and confirmed dose and frequency. He reports that his shortness of breath is improved, and his chest pain is resolved, and his sore throat and swelling is significantly improved. He denies nausea, vomiting, diarrhea, constipation, fever, chills. Objective - Vital Signs/Intake and Output Vital Signs (last 24 hours): Temp Pulse Resp BP Pulse Ox 97.9 F 91 H 20 149/86 96 06/08/17 08:34 06/08/17 08:34 06/08/17 08:34 06/08/17 08:34 06/08/17 08:34 Intake and Output: 06/08/17 06/08/17 06:59 18:59 Intake Total 600 Balance 600 - Medications Medications: Current Medications Acetaminophen (Tylenol 325mg Tab) 650 mg PO Q6 PRN PRN Reason: Pain, moderate (4-7) Albuterol/Ipratropium (Duoneb 3 Mg/0.5 Mg (3 Ml) Ud) 3 ml IH [id number] [facility] Last Admin: 06/08/17 08:02 Dose: 3 ml Albuterol/Ipratropium (Duoneb 3 Mg/0.5 Mg (3 Ml) Ud) 3 ml IH Q2H PRN PRN Reason: Shortness of Breath Aspirin (Ecotrin) 81 mg PO DAILY [facility] Last Admin: 06/07/17 12:15 Dose: 81 mg Heparin Sodium (Porcine) (Heparin) 5,000 units SC Q12 TRACY PRN Reason: Protocol Last Admin: 06/07/17 21:27 Dose: 5,000 units Levofloxacin/Dextrose (Levaquin 500mg) 500 mg in 100 mls @ 100 mls/hr IVPB DAILY [facility] PRN Reason: Protocol Methadone HCl (Methadone) 170 mg PO DAILY [facility] Methylprednisolone (Solu-Medrol) 30 mg IVP Q12 [facility] Pantoprazole Sodium (Protonix Ec Tab) 40 mg PO DAILY [facility] Last Admin: 06/07/17 11:14 Dose: 40 mg - Labs Labs: 06/08/17 06:30 06/08/17 06:30 - Constitutional Appears: Non-toxic, No Acute Distress - Head Exam Head Exam: ATRAUMATIC, NORMOCEPHALIC - Eye Exam Eye Exam: EOMI, Normal appearance, PERRL - ENT Exam ENT Exam: Mucous Membranes Moist Additional comments: Uvular swelling resolved - Neck Exam Neck Exam: Full ROM, Normal Inspection - Respiratory Exam Respiratory Exam: Wheezes (decreased, diffuse), NORMAL BREATHING PATTERN - Cardiovascular Exam Cardiovascular Exam: RRR, +S1, +S2 - GI/Abdominal Exam GI & Abdominal Exam: Soft, Normal Bowel Sounds. absent: Tenderness - Extremities Exam Extremities Exam: Normal Inspection. absent: Calf Tenderness, Pedal Edema - Neurological Exam Neurological Exam: Alert, Awake, Oriented x3 - Psychiatric Exam Psychiatric exam: Normal Affect, Normal Mood - Skin Skin Exam: Dry, Intact, Normal Color Assessment and Plan - Assessment and Plan (Free Text) Assessment: 51 Male with a PMH of COPD and chronic lower extremity edema comes to the ED with complaint of burning and swelling of his throat and worsening SOB found to have COPD exacerbation, chest pain. Ruled out ACS. Continuing steroids for COPD and uvulitis. Plan: 1. Uvulitis, swelling; improving - CT of soft tissue neck shows nonspecific uvular swelling and vallecular cyst; no peritonsillar or parapharyngeal abscess - solu-medrol for swelling/ inflammation - On full liquid diet; advance as tolerated 2. chest pain r/o acs - Pain resolved - Serial troponins negative - Disctontinue telemetry - Echo pending - lipid panel wnl - hgba1c pending - cardiology consult 3. COPD exacerbation - Wheezing and shortness of breath improved; decrease solumedrol for 30q12 - nasal cannula as needed - duonebs q6 tracy and q2 prn - Continue Levaquin 4. GERD - protonix - avoid NSAIDs - continue to monitor 5. SHERI - Patient uses BIPAP at home - BIPAP at night 6. h/o IVDA; on methadone 170mg daily with [facility] - Methadone positive on UDS - Continue methadone 170mg daily Ppx - GI- protonix - DVT- heparin
[2017-06-08] MEDS: Pantoprazole 40 mg EC Tab PO SCH (09:09)
[2017-06-08] MEDS ORDERED: levoFLOXacin 500 mg in D5W 500 MG/100 ML BAG IVPB SCH (10:00)
[2017-06-08] MEDS ORDERED: POLYETHYLENE GLYCOL 3350 17 GM/Dose PACKET PO SCH (11:15)
[2017-06-08] MEDS ORDERED: Albuterol-Ipratrop 3 mg / 0.5 (3 ml) UD IH SCH (11:30)
[2017-06-08] MEDS ORDERED: levoFLOXacin 500 MG TAB PO SCH (12:30)
[2017-06-08 13:57] VITALS: PULSE 93
--- NOTE | 2017-06-08 19:44 | CARD ---
APPROVED REPORT EKG Measurement Heart [id number] 170P3 [id number] <Conclusion> Normal sinus rhythm Normal ECG
--- NOTE | 2017-06-08 21:52 | CP.PCM.DIS ---
<DamiRadha - Last Filed: 06/08/17 21:43> Provider - Provider Date of Admission: 06/07/17 09:58 Attending physician: Sara Ocasio MD Primary care physician: Fernandez Meadows MD Time Spent in preparation of Discharge (in minutes): 55 Diagnosis - Discharge Diagnosis (1) Uvulitis Status: Acute (2) COPD exacerbation Status: Acute Hospital Course - Lab Results Lab Results: Most Recent Lab Values WBC 19.6 10^3/ul (4.5-11.0) H D 06/08/17 06:30 RBC 4.21 10^6/uL (3.5-6.1) 06/08/17 06:30 Hgb 13.3 g/dL (14.0-18.0) L 06/08/17 06:30 Hct 39.3 % (42.0-52.0) L 06/08/17 06:30 MCV 93.3 fl (80.0-105.0) 06/08/17 06:30 MCH 31.6 pg (25.0-35.0) 06/08/17 06:30 MCHC 33.8 g/dl (31.0-37.0) 06/08/17 06:30 RDW 12.8 % (11.5-14.5) 06/08/17 06:30 Plt Count 217 10^3/uL (120.0-450.0) 06/08/17 06:30 MPV 11.2 fl (7.0-11.0) H 06/08/17 06:30 Gran % 90.4 % (50.0-68.0) H 06/08/17 06:30 Lymph % (Auto) 6.3 % (22.0-35.0) L 06/08/17 06:30 Travis % (Auto) 3.2 % (1.0-6.0) 06/08/17 06:30 Eos % (Auto) 0.0 % (1.5-5.0) L 06/08/17 06:30 Baso % (Auto) 0.1 % (0.0-3.0) 06/08/17 06:30 Gran # 17.70 (1.4-6.5) H 06/08/17 06:30 Lymph # (Auto) 1.2 (1.2-3.4) 06/08/17 06:30 Travis # (Auto) 0.6 (0.1-0.6) 06/08/17 06:30 Eos # (Auto) 0.0 (0.0-0.7) 06/08/17 06:30 Baso # (Auto) 0.01 K/mm3 (0.0-2.0) 06/08/17 06:30 Neutrophils % (Manual) 88 % (50.0-70.0) H 06/08/17 06:30 Lymphocytes % (Manual) 8 % (22.0-35.0) L 06/08/17 06:30 Monocytes % (Manual) 4 % (1.0-6.0) 06/08/17 06:30 Sodium 139 mmol/L (132-148) 06/08/17 06:30 Potassium 4.7 mmol/L (3.6-5.0) 06/08/17 06:30 Chloride 104 mmol/L (98-107) 06/08/17 06:30 Carbon Dioxide 26 mmol/L (21-33) 06/08/17 06:30 Anion Gap 14 (10-20) 06/08/17 06:30 BUN 18 mg/dL (7-21) 06/08/17 06:30 Creatinine 0.7 mg/dl (0.8-1.5) L 06/08/17 06:30 Est GFR ( Amer) > 60 06/08/17 06:30 Est GFR (Non-Af Amer) > 60 06/08/17 06:30 Random Glucose 193 mg/dL (70-110) H 06/08/17 06:30 Hemoglobin A1c 6.0 % (4.2-6.5) 06/07/17 11:20 Calcium 9.2 mg/dL (8.4-10.5) 06/08/17 06:30 Magnesium 1.9 mg/dL (1.7-2.2) 06/07/17 08:36 Total Bilirubin 0.2 mg/dL (0.2-1.3) 06/08/17 06:30 AST 25 U/L (17-59) 06/08/17 06:30 ALT 45 U/L (7-56) 06/08/17 06:30 Alkaline Phosphatase 79 U/L (38-126) 06/08/17 06:30 Lactate Dehydrogenase 604 U/L (333-699) 06/07/17 08:36 Total Creatine Kinase 118 U/L (35-230) 06/07/17 08:36 Troponin I < 0.01 ng/mL 06/07/17 20:20 NT-Pro-B Natriuret Pep 17.2 pg/mL (0-450) 06/07/17 08:36 Total Protein 8.1 g/dL (5.8-8.3) 06/08/17 06:30 Albumin 4.1 g/dL (3.0-4.8) 06/08/17 06:30 Globulin 4.0 gm/dL 06/08/17 06:30 Albumin/Globulin Ratio 1.0 (1.1-1.8) L 06/08/17 06:30 Triglycerides 153 mg/dL (35-160) 06/07/17 11:20 Cholesterol 160 mg/dL (130-200) 06/07/17 11:20 LDL Cholesterol Direct 81 mg/dL (0-129) 06/07/17 11:20 HDL Cholesterol 42 mg/dL (29-60) 06/07/17 11:20 Urine Opiates Screen Negative (NEGATIVE) 06/07/17 14:55 Urine Methadone Screen Positive (NEGATIVE) H 06/07/17 14:55 Ur Barbiturates Screen Negative (NEGATIVE) 06/07/17 14:55 Ur Phencyclidine Scrn Negative (NEGATIVE) 06/07/17 14:55 Ur Amphetamines Screen Negative (NEGATIVE) 06/07/17 14:55 U Benzodiazepines Scrn Positive (NEGATIVE) 06/07/17 14:55 U Oth Cocaine Metabols Negative (NEGATIVE) 06/07/17 14:55 U Cannabinoids Screen Positive (NEGATIVE) H 06/07/17 14:55 Influenza Typ A,B (EIA) Negative for flu a/b (NEGATIVE) 06/07/17 09:30 Grp A Beta Strep Ag Negative (NEGATIVE) 06/07/17 09:30 - Hospital Course Hospital Course: 51 Male with a PMH of COPD, 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 Patient was noted to have edematous, erythematous uvula and tongue base. He was also dyspneic and wheezing on exam. He was also complaining of chest pain. ACS was ruled out with EKG and negative serial troponins. CT scan of soft tissue of the neck showed uvular swelling and vallecular cyst, without parapharyngeal, retropharyngea, or peritonsillar abscess. Patient was treated for uvulitis and COPD exacerbatino with IV steroids and nebulized breathing treatments, as well as IV antibiotics. Patient experiences significant improvement in his sore throat and dyspnea with that regimen. Patient's methadone clinic was also contacted to confirm his dosages and frequency, and he was continued on his previously prescribed regimen. Today, patient was reportedly hypoxic on ambulation with the nurse. I subsequently examined the patient, and ambulated with him around the hallway for 6 minutes, attached to the hospital's pulse oximeter. Patient did not desaturate below 89% during ambulation. Nurse apparently used a POC consumer pulse oximeter, which consistently displayed a saturation reading 2-3% lower than the standard hospital pulse oximeter, and so gave a falsely low reading. Patient reported resolution in his chest pain, shortness of breath, and sore throat. He had faint wheezing on exam initially, which resolved throughout the day. Patient was given new prescriptions for his scheduled and PRN inhalers and nebulizer treatments, as well as antibiotics and a steroid taper. He was also given instructions for follow up. All questions were answered to his satisfaction, and he was discharged to home. Discharge Exam - Head Exam Head Exam: ATRAUMATIC, NORMOCEPHALIC - Eye Exam Eye Exam: EOMI, Normal appearance, PERRL Pupil Exam: NORMAL ACCOMODATION - ENT Exam ENT Exam: Mucous Membranes Moist, Normal Oropharynx Additional comments: No uvular edema, erythema, or exudate - Respiratory Exam Respiratory Exam: Wheezes (faint, then later in the day, none), NORMAL BREATHING PATTERN. absent: Rales, Rhonchi - Cardiovascular Exam Cardiovascular Exam: RRR, +S1, +S2 - GI/Abdominal Exam GI & Abdominal Exam: Normal Bowel Sounds, Soft. absent: Rigid, Tenderness - Extremities Exam Extremities exam: normal inspection - Neurological Exam Neurological exam: Alert, Oriented x3 - Psychiatric Exam Psychiatric exam: Normal Affect, Normal Mood - Skin Skin Exam: Dry, Intact, Normal Color Discharge Plan - Discharge Medications Prescriptions: Albuterol HFA [Ventolin HFA 90 mcg/actuation (8 g)] 2 puff IH [id number] PRN #1 inhaler PRN Reason: Wheezing Albuterol/Ipratropium [Duoneb 3 mg/0.5 mg (3 ml) UD] 3 ml IH Q6 PRN #60 neb PRN Reason: Wheezing, Shortness of Breath Budesonide/Formoterol Fumarate [Symbicort] 1 aer IH BID #1 inhaler levoFLOXacin [Levaquin] 500 mg PO DAILY #5 tab predniSONE [predniSONE Tab] See Taper PO DAILY #40 tab - Follow Up Plan Condition: GUARDED Disposition: HOME/ ROUTINE Instructions: Quitting Smoking for Older Adults, Smoking: Not Just Harmful to Your Lungs and Heart, Exacerbation of COPD (DC), Medicines for Chronic Obstructive Pulmonary Disease (COPD), Breathing Exercises Additional Instructions: - Continue to take prednisone taper, as prescribed, to completion, even if you feel better - Continue to use symbicort inhaler, two puffs twice daily - Use the Duonebs nebulizer treatment and Albuterol inhaler as needed - Continue the Levaquin for 5 more days, even if you feel better - You must also quit smoking altogether, as discussed - Follow up with PCP of your choice, or [facility] community clinic, within one week - For any new or worsening concerns, contact your PCP immediately, or return to the ER Referrals: Fernandez Meadows MD [Primary Care Provider] - <Sara Ocasio - Last Filed: 06/09/17 15:33> Provider - Provider Date of Admission: 06/07/17 09:58 Attending physician: Sara Ocasio MD Primary care physician: Fernandez Meadows MD Time Spent in preparation of Discharge (in minutes): 35 Hospital Course - Lab Results Lab Results: Most Recent Lab Values WBC 19.6 10^3/ul (4.5-11.0) H D 06/08/17 06:30 RBC 4.21 10^6/uL (3.5-6.1) 06/08/17 06:30 Hgb 13.3 g/dL (14.0-18.0) L 06/08/17 06:30 Hct 39.3 % (42.0-52.0) L 06/08/17 06:30 MCV 93.3 fl (80.0-105.0) 06/08/17 06:30 MCH 31.6 pg (25.0-35.0) 06/08/17 06:30 MCHC 33.8 g/dl (31.0-37.0) 06/08/17 06:30 RDW 12.8 % (11.5-14.5) 06/08/17 06:30 Plt Count 217 10^3/uL (120.0-450.0) 06/08/17 06:30 MPV 11.2 fl (7.0-11.0) H 06/08/17 06:30 Gran % 90.4 % (50.0-68.0) H 06/08/17 06:30 Lymph % (Auto) 6.3 % (22.0-35.0) L 06/08/17 06:30 Travis % (Auto) 3.2 % (1.0-6.0) 06/08/17 06:30 Eos % (Auto) 0.0 % (1.5-5.0) L 06/08/17 06:30 Baso % (Auto) 0.1 % (0.0-3.0) 06/08/17 06:30 Gran # 17.70 (1.4-6.5) H 06/08/17 06:30 Lymph # (Auto) 1.2 (1.2-3.4) 06/08/17 06:30 Travis # (Auto) 0.6 (0.1-0.6) 06/08/17 06:30 Eos # (Auto) 0.0 (0.0-0.7) 06/08/17 06:30 Baso # (Auto) 0.01 K/mm3 (0.0-2.0) 06/08/17 06:30 Neutrophils % (Manual) 88 % (50.0-70.0) H 06/08/17 06:30 Lymphocytes % (Manual) 8 % (22.0-35.0) L 06/08/17 06:30 Monocytes % (Manual) 4 % (1.0-6.0) 06/08/17 06:30 Sodium 139 mmol/L (132-148) 06/08/17 06:30 Potassium 4.7 mmol/L (3.6-5.0) 04/02/18 06:30 Chloride 104 mmol/L (98-107) 06/08/17 06:30 Carbon Dioxide 26 mmol/L (21-33) 06/08/17 06:30 Anion Gap 14 (10-20) 06/08/17 06:30 BUN 18 mg/dL (7-21) 06/08/17 06:30 Creatinine 0.7 mg/dl (0.8-1.5) L 06/08/17 06:30 Est GFR ( Amer) > 60 06/08/17 06:30 Est GFR (Non-Af Amer) > 60 06/08/17 06:30 Random Glucose 193 mg/dL (70-110) H 06/08/17 06:30 Hemoglobin A1c 6.0 % (4.2-6.5) 06/07/17 11:20 Calcium 9.2 mg/dL (8.4-10.5) 06/08/17 06:30 Magnesium 1.9 mg/dL (1.7-2.2) 06/07/17 08:36 Total Bilirubin 0.2 mg/dL (0.2-1.3) 06/08/17 06:30 AST 25 U/L (17-59) 06/08/17 06:30 ALT 45 U/L (7-56) 06/08/17 06:30 Alkaline Phosphatase 79 U/L (38-126) 06/08/17 06:30 Lactate Dehydrogenase 604 U/L (333-699) 06/07/17 08:36 Total Creatine Kinase 118 U/L (35-230) 06/07/17 08:36 Troponin I < 0.01 ng/mL 06/07/17 20:20 NT-Pro-B Natriuret Pep 17.2 pg/mL (0-450) 06/07/17 08:36 Total Protein 8.1 g/dL (5.8-8.3) 06/08/17 06:30 Albumin 4.1 g/dL (3.0-4.8) 06/08/17 06:30 Globulin 4.0 gm/dL 06/08/17 06:30 Albumin/Globulin Ratio 1.0 (1.1-1.8) L 06/08/17 06:30 Triglycerides 153 mg/dL (35-160) 06/07/17 11:20 Cholesterol 160 mg/dL (130-200) 06/07/17 11:20 LDL Cholesterol Direct 81 mg/dL (0-129) 06/07/17 11:20 HDL Cholesterol 42 mg/dL (29-60) 06/07/17 11:20 Urine Opiates Screen Negative (NEGATIVE) 06/07/17 14:55 Urine Methadone Screen Positive (NEGATIVE) H 06/07/17 14:55 Ur Barbiturates Screen Negative (NEGATIVE) 06/07/17 14:55 Ur Phencyclidine Scrn Negative (NEGATIVE) 06/07/17 14:55 Ur Amphetamines Screen Negative (NEGATIVE) 06/07/17 14:55 U Benzodiazepines Scrn Positive (NEGATIVE) 06/07/17 14:55 U Oth Cocaine Metabols Negative (NEGATIVE) 06/07/17 14:55 U Cannabinoids Screen Positive (NEGATIVE) H 06/07/17 14:55 Influenza Typ A,B (EIA) Negative for flu a/b (NEGATIVE) 06/07/17 09:30 Grp A Beta Strep Ag Negative (NEGATIVE) 06/07/17 09:30 Attending/Attestation - Attestation I have personally seen and examined this patient.: Yes I have fully participated in the care of the patient.: Yes I have reviewed all pertinent clinical information, including history, physical exam and plan: Yes Notes (Text): 06/09/17 15:28 Medical record note made by the resident after discussion with my direction and input after the patient was personally seen and examined by me. I have reviewed the chart and agree that the record accurately reflects by personal performance of the history, physical exam, data review, and medical decision-making, in the course for the patient. I have also personally directed the plan of care. 51 year old male with past medical history of COPD and SHERI who presents with complaint of chest pain, shortness of breath and throat pain with difficulty swallowing.Patient symptoms has improved with Nebulization, steroid and antibiotics.He is on room air.He is ambulatory and is tolerating food. The issue of chronic smoking was discussed in detail with patient. Patient will be discharged home and will follow up with PCP Management plan was discussed in detail with patient. Education was provided.
--- NOTE | 2017-06-09 08:24 | CON ---
DATE: 06/08/2017 HISTORY OF PRESENT ILLNESS: This is a 51-year-old white male who was admitted to [facility] (Former[facility]) with exacerbation of COPD, uvulitis. The patient on CT examination was noted to have evidence of possible vallecular cyst on exam. Patient states that he had one previous episode of angioneurotic edema in the past many years ago and has not had one since. PHYSICAL EXAMINATION: The patient was noted to have some mild uvular edema. Oropharyngeal exam was otherwise unremarkable. Tympanic membranes and external auditory canals are normal bilaterally. Intranasal cavity revealed evidence of left septal deviation. We performed direct fiberoptic laryngoscopy through the right nasal cavity, which was then passed through the nasopharynx exposing the vallecular region. On physical examination, there was only evidence of lingual tonsillar hypertrophy without any cyst or mass noted. Vocal cords revealed normal mobility and there was mild arytenoid erythema noted. of the hypopharynx is unremarkable. IMPRESSION: 1. The patient has lingual tonsillar hypertrophy without any evidence of vallecular cyst or mass noted. 2. laryngopharyngeal reflux. 3. Uvulitis, which has since improved on medications. PLAN: We instructed the patient to follow up with us as an outpatient for further allergy evaluation and treatment of his gastroesophageal reflux disease. If you have any further questions, feel free to contact me. Thank you for allowing us to participate in the care of this patient. Brodie Fowler DO
== END 2017-06-08 17:25 | disposition home or self-care (01) ==
LOC: ED 07:23 → ERH 09:58 → 3RNO 11:55
PROVIDERS: ADMIT Internal Medicine; ATTEND Internal Medicine
DX: J44.1 Chronic obstructive pulmonary disease with (acute) exacerbation (principal); K12.2 Cellulitis and abscess of mouth; J35.1 Hypertrophy of tonsils; F17.210 Nicotine dependence, cigarettes, uncomplicated; K21.9 Gastro-esophageal reflux disease without esophagitis; G47.33 Obstructive sleep apnea (adult) (pediatric); F11.20 Opioid dependence, uncomplicated; R60.0 Localized edema; Z88.0 Allergy status to penicillin
CPT/HCPCS: 36415; 70490; 71045; 80053; 80061; 80324; 80345; 80346; 80349; 80353; 80358; 80361; 82550; 83036; 83615; 83735; 83880; 83992; 84484; 85025; 87070; 87430; 87804; 93005; 94640; 96365; 96372; 96375; 96376; 99284; G0378; J1200; J1644; J2920; J2930

== ENCOUNTER 2017-09-22 08:33 | Emergency (ER) | payer MEDICAID ==
[2017-09-22 08:34] VITALS: BMI 39.5
[2017-09-22] MEDS ORDERED: Morphine 4 mg/ml ISec IVP STA (09:11)
--- NOTE | 2017-09-22 09:11 | ED PDOC ---
Arrival/HPI - General Chief Complaint: Male Genitourinary Time Seen by Provider: 09/22/17 09:05 Historian: Patient - History of Present Illness Narrative History of Present Illness (Text): 09/22/17 09:06 52 year old male, with no significant past medical history, who presents to the Emergency department complaining of bilateral lower back pain that radiates to the testicles and abdomen. Patient notes he lifted a 200 pound object but did not feel pain rigth away. Patient notes he laid down and the pain "took his breath away". Patient denies any fevers, chills, chest pain, nausea, vomiting, diarrhea, neck pain, headache, dizziness, or any other complaint. Time/Duration: 24 hours Symptom Onset: Gradual Symptom Course: Unchanged Activities at Onset: Light Context: Home Past Medical History - Provider Review Nursing Documentation Reviewed: Yes - Infectious Disease Hx of Infectious Diseases: None - Tetanus Immunization Tetanus Immunization: Unknown - Cardiac Hx Cardiac Disorders: Yes Hx Peripheral Edema: Yes - Pulmonary Hx Respiratory Disorders: Yes Hx Asthma: Yes Hx Chronic Obstructive Pulmonary Disease (COPD): Yes Hx Emphysema: Yes - Neurological Hx Neurological Disorder: No - HEENT Hx HEENT Disorder: No - Renal Hx Renal Disorder: No - Endocrine/Metabolic Hx Endocrine Disorders: No - Hematological/Oncological Hx Blood Disorders: No Other/Comment: lupus, itp - Integumentary Hx Dermatological Disorder: No - Musculoskeletal/Rheumatological Hx Musculoskeletal Disorders: Yes Hx Arthritis: Yes (hand legs elbows joints) - Gastrointestinal Hx Gastrointestinal Disorders: Yes - Genitourinary/Gynecological Hx Genitourinary Disorders: No - Psychiatric Hx Psychophysiologic Disorder: No Hx Substance Use: Yes (8yrs clean) - Past Surgical History Past Surgical History: No Previous - Surgical History Other/Comment: 200 stitches to left hand, pt was 9 yrs old and fell holding a glass, can't bend index finger - Anesthesia Hx Anesthesia: Yes Hx Anesthesia Reactions: No Hx Malignant Hyperthermia: No - Suicidal Assessment Feels Threatened In Home Enviroment: No Family/Social History - Physician Review Nursing Documentation Reviewed: Yes Family/Social History: Unknown Family HX Smoking Status: Light Smoker < 10 Cigarettes Daily Hx Alcohol Use: No (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) Substance used: herion Hx Substance Use Treatment: No Allergies/Home Meds Allergies/Adverse Reactions: Allergies Penicillins Allergy (Verified 04/13/17 13:11) ANAPHYLAXIS Home Medications: Home Meds Medication Instructions Recorded Confirmed Methadone 170 mg PO DAILY 06/07/17 06/07/17 Review of Systems - Physician Review All systems were reviewed & negative as marked: Yes - Review of Systems Constitutional: Normal Eyes: Normal ENT: Normal Respiratory: Normal. absent: SOB, Cough Cardiovascular: Normal. absent: Chest Pain Gastrointestinal: Abdominal Pain Genitourinary Male: Normal Musculoskeletal: Normal, Back Pain (lower back pain that radiates to testicles) . absent: Neck Pain Skin: Normal. absent: Rash Neurological: Normal. absent: Headache, Dizziness Endocrine: Normal Hemo/Lymphatic: Normal Psychiatric: Normal Physical Exam - Physical Exam Narrative Physical Exam (Text): 09/22/17 09:12 Gen: VS reviewed, alert, well developed, well nourished, nontoxic, severe distress. ENT: normal pharynx. Eye: EOMI, PERRL. Neck: no JVD, supple, no adenopathy. CV: regular rate, regular rhythm, no rubs, no murmur, no gallops, S1, S2, pulses equal and strong. Pulm: no distress, clear to auscultation, no wheeze, no rhonchi, breath sounds equal, no rales. Abd: LLQ tender, some guarding, no rebound, no rigidity, normal bowel sounds. Ext: no edema. Skin: good color, no rash, no cyanosis. Psych: responds appropriately to questions, normal affect. Neuro: oriented x 3, CN2-12 intact grossly, motor intact, sensation intact. Genotourinary Male: No tenderness or bulge to bilateral inguinal area. Tenderness to bilateral testicles. Overlying firmness to testicular epididymis. No overlying cellulitic skin changes. Vital Signs Temp Pulse Resp BP Pulse Ox 09/22/17 13:00 98.1 F 92 H 18 99 09/22/17 09:35 98.2 F 99 H 18 138/99 H 99 Medical Decision Making ED Course and Treatment: 09/22/17 09:17 Impression: 52 year old male presents to the Emergency department complaining of bilateral lower back pain that radiates to the testicles and abdomen. Plan: -- CT abdomen/Pelvis -- Labs -- UA -- US testes -- Morphine -- Sodium Chloride -- Reassess and disposition Progress Notes: 09/22/17 09:58 PROCEDURE: ULTRASOUND GUIDED IV PLACEMENT Performed by the emergency provider Time: 09:55 Consent: Informed consent, after discussion of the risks, benefits, and alternatives to the procedure, was obtained. Timeout: A timeout to verify the correct patient, procedure, and site was performed immediately prior to the procedure. Indication: Lack of adequate venous access. Skin Preparation: Hand hygiene performed prior to venous catheter insertion. The area was cleansed and prepped with . Location: Technique: A 20 gauge catheter was placed under direct visualization into the { RIGHT/LEFT} . Assessment: Good patency and blood return. Post-procedure: Patient tolerated the procedure well with no immediate complications. 09/22/17 11:03 CT Abd/Pelvis reviewed, shows: LOWER THORAX: Unremarkable. LIVER: Unremarkable. No gross lesion or ductal dilatation. GALLBLADDER AND BILE DUCTS: Unremarkable. PANCREAS: Unremarkable. No gross lesion or ductal dilatation. SPLEEN: Unremarkable. ADRENALS: Unremarkable. No mass. KIDNEYS AND URETERS: Unremarkable. No hydronephrosis. No solid mass. VASCULATURE: Unremarkable. No aortic aneurysm. BOWEL: Unremarkable. No obstruction. No gross mural thickening. APPENDIX: Normal appendix. PERITONEUM: Unremarkable. No free fluid. No free air. LYMPH NODES: Unremarkable. No enlarged lymph nodes. BLADDER: Unremarkable. REPRODUCTIVE: Unremarkable. BONES: No acute fracture. OTHER FINDINGS: None. IMPRESSION: No acute findings. No evidence of diverticulitis 09/22/17 11:04 Ultrasound Testicular reviewed, shows: RIGHT TESTICLE: Measures 4.2 x 2.7 x 3.0 cm. Normal echotexture and flow. RIGHT EPIDIDYMIS: Epididymal head measures 0.3 x 0.8 x 1.1 cm. Grossly unremarkable appearance with normal flow. LEFT TESTICLE: Measures 4.5 x 2.2 x 2.8 cm. Normal echotexture and flow. LEFT EPIDIDYMIS: Epididymal head measures 1.1 x 0.5 x 0.9 cm. Grossly unremarkable appearance with normal flow. HYDROCELE: None. VARICOCELE: None. OTHER FINDINGS: None. IMPRESSION: Negative study 09/22/17 12:39 after further analgesics, patient is not able to ambulate and feels much better. patient no admits that he has been wheezing lately with a mild cough, still smokes and ran out of his albuterol inhaler and symbicort. on exam patient is able to talk in full sentences, no tachypnea,has mild bilateral exp wheeze. patient appears stable for dc, will dose prednisone now and will dc with rx for prednisone 09/22/17 18:20 shahzad was seen for low back pain radiating into groin after lifting heavy object, there were acute neuro deficitis on exam, pain improved after medication interventions, patient discharged in stable condition to follow up with pcp for further management including nonemergent MRI to eval for HNP. - Lab Interpretations Lab Results: 09/22/17 09:09 09/22/17 09:45 Lab Results 09/22/17 10:30: Urine Color Yellow, Urine Appearance Clear, Urine pH 8.0, Ur Specific [place] 1.020, Urine Protein Negative, Urine Glucose (UA) Negative, Urine Ketones Negative, Urine Blood Negative, Urine Nitrate Negative, Urine Bilirubin Negative, Urine Urobilinogen 1.0 H, Ur Leukocyte Esterase Negative 09/22/17 09:45: Sodium 140, Potassium 4.4, Chloride 100, Carbon Dioxide 30, Anion Gap 15, BUN 9, Creatinine 0.6 L, Est GFR ( Amer) > 60, Est GFR (Non -Af Amer) > 60, Random Glucose 99, Calcium 8.9, Total Bilirubin 0.6, AST 32, ALT 44, Alkaline Phosphatase 82, Total Protein 8.1, Albumin 4.3, Globulin 3.8, Albumin/Globulin Ratio 1.1 09/22/17 09:09: WBC 7.7 D, RBC 4.47, Hgb 14.2, Hct 40.4 L, MCV 90.4, MCH 31.8, MCHC 35.1, RDW 12.3, Plt Count 225, MPV 11.0, Gran % 68.0, Lymph % (Auto) 22.1, [place] % (Auto) 6.0, Eos % (Auto) 3.6, Baso % (Auto) 0.3, Gran # 5.22, Lymph # ( Auto) 1.7, [place] # (Auto) 0.5, Eos # (Auto) 0.3, Baso # (Auto) 0.02 - RAD Interpretation Radiology Orders: 09/22/17 09:09 TESTES DUPLEX COMPLETE [US] Stat 09/22/17 09:10 ABDOMEN & PELVIS [ABD & PELVIS IV CONTRAST ONLY] [CT] Stat - Medication Orders Current Medication Orders: Discontinued Medications Acetaminophen (Tylenol 325mg Tab) 975 mg PO STAT STA Stop: 09/22/17 11:36 Last Admin: 09/22/17 11:54 Dose: 975 mg MAR Pain/Vitals Document 09/22/17 11:54 [email or web address] (Rec: 09/22/17 11:54 [email or web address] [id number]) Pain Reassessment Is This A Pain ReAssessment? No Sleep Is patient sleeping during reassessment? No Presence of Pain Presence of Pain Yes Pain Scale Used Pain Scale Used Numeric Location Pain Location Body Site Back Description Constant Intensity 7 Scale Used Numeric Pain Behavior Facial Grimacing Aggravating Factors Changing Position Alleviating Factors Medication Cyclobenzaprine HCl (Flexeril) 5 mg PO STAT STA Stop: 09/22/17 11:36 Last Admin: 09/22/17 11:53 Dose: 5 mg Sodium Chloride (Sodium Chloride 0.9%) 1,000 mls @ 150 mls/hr IV .Q6H40M ROSY Last Admin: 09/22/17 10:02 Dose: 150 mls/hr eMAR Start Stop Document 09/22/17 10:02 [email or web address] (Rec: 09/22/17 10:02 [email or web address] [id number]) Intravenous Solution Start Date 09/22/17 Start Time 10:02 End Date 09/22/17 Ketorolac Tromethamine (Toradol) 30 mg IVP STAT STA Stop: 09/22/17 11:36 Last Admin: 09/22/17 11:54 Dose: 30 mg MAR Pain Assessment Document 09/22/17 11:54 [email or web address] (Rec: 09/22/17 11:54 [email or web address] [id number]) Pain Reassessment Is this a pain reassessment? No Sleep Is patient sleeping during reassessment? No Presence of Pain Presence of Pain Yes Pain Scale Used Pain Scale Used Numeric Location Pain Location Body Site Back Description Description Constant Intensity of Pain at present 7 Pain Behavior Facial Grimacing Aggravating Factors Changing Position Alleviating Factors/Management Position Change Techniques Alleviating Factors Medication IVP Administration Document 09/22/17 11:54 [email or web address] (Rec: 09/22/17 11:54 [email or web address] [id number]) Charges for Administration # of IVP Administrations 1 Morphine Sulfate (Morphine) 6 mg IVP STAT STA Stop: 09/22/17 09:12 Last Admin: 09/22/17 10:01 Dose: 6 mg MAR Pain Assessment Document 09/22/17 10:01 [email or web address] (Rec: 09/22/17 10:02 [email or web address] [id number]) Pain Reassessment Is this a pain reassessment? No Sleep Is patient sleeping during reassessment? No Presence of Pain Presence of Pain Yes Pain Scale Used Pain Scale Used Numeric Location Pain Location Body Site Back Description Description Constant Intensity of Pain at present 7 Pain Behavior Facial Grimacing Aggravating Factors Changing Position Alleviating Factors/Management Position Change Techniques Alleviating Factors Medication IVP Administration Document 09/22/17 10:01 [email or web address] (Rec: 09/22/17 10:02 [email or web address] [id number]) Charges for Administration # of IVP Administrations 1 Prednisone (Prednisone Tab) 60 mg PO STAT ONE Stop: 09/22/17 12:42 Last Admin: 09/22/17 12:58 Dose: 60 mg - Scribe Statement The provider has reviewed the documentation as recorded by the Scribjeana Haney All medical record entries made by the Majoribjeana were at my direction and personally dictated by me. I have reviewed the chart and agree that the record accurately reflects my personal performance of the history, physical exam, medical decision making, and the department course for this patient. I have also personally directed, reviewed, and agree with the discharge instructions and disposition. Disposition/Present on Arrival - Present on Arrival Any Indicators Present on Arrival: No History of DVT/PE: No History of Uncontrolled Diabetes: No Urinary Catheter: No History of Decub. Ulcer: No History Surgical Site Infection Following: None - Disposition Have Diagnosis and Disposition been Completed?: Yes Diagnosis: Lumbar radiculopathy, COPD (chronic obstructive pulmonary disease) Disposition: HOME/ ROUTINE Disposition Time: 12:41 Patient Plan: Discharge Condition: IMPROVED Discharge Instructions (ExitCare): Quitting Smoking, Radiculopathy Print Language: SLOVAK Additional Instructions: JOY LAMAS, thank you for letting us take care of you today. Your provider was Mathew Manzo DO and you were treated for lumbar radiculopathy and copd. The emergency medical care you received today was directed at your acute symptoms. If you were prescribed any medication, please fill it and take as directed. It may take several days for your symptoms to resolve. Return to the Emergency Department if your symptoms worsen, do not improve, or if you have any other problems. Please contact your doctor or call one of the physicians/clinics you have been referred to that are listed on the Patient Visit Information form that is included in your discharge packet. Bring any paperwork you were given at discharge with you along with any medications you are taking to your follow up visit. Our treatment cannot replace ongoing medical care by a primary care provider outside of the emergency department. Thank you for allowing the [facility] team to be part of your care today. If you had an X-Ray or CT scan: A Radiologist will review the ED reading if any change in treatment is needed we will contact you. If you had a blood, urine, or wound culture: It will take several days for the results, if any change in treatment is needed we will contact you. If you had an STI test: It will take 48 hours for the results. Please call after 1 week if you have not heard back. Prescriptions: Albuterol 0.5% [Albuterol 0.5% Inhal Cynthia (2.5 mg/0.5 ml) UD] 0.25 ml IH Q4H #1 neb Budesonide/Formoterol Fumarate [Symbicort 160-4.5 Mcg Inhaler] 10.2 gm IH BID # 1 hfa.aer.ad Cyclobenzaprine [Flexeril] 5 mg PO TID #15 tab Ibuprofen [Motrin Tab] 600 mg PO QID #30 tab Prednisone [Deltasone] 40 mg PO DAILY 5 Days #10 tablet Referrals: Molly Aguirre MD [Primary Care Provider] - Follow up with primary Forms: [employer] ([place]ux[place]ish)
[2017-09-22] MEDS ORDERED: Sodium Chloride 0.9% 1,000 ML IV SCH (09:15)
[2017-09-22 09:52] LABS: BASO # 0.02 K/mm3 (0.0-2.0); BASO % 0.3 % (0.0-3.0); EOS # 0.3 (0.0-0.7); EOS % 3.6 % (1.5-5.0); GRAN # 5.22 (1.4-6.5); HEMOGLOBIN 14.2 g/dL (14.0-18.0); LYMPH # 1.7 (1.2-3.4); LYMPH % 22.1 % (22.0-35.0); MEAN CELL VOLUME 90.4 fl (80.0-105.0); MEAN CORPUSCULAR HEMOGLOBIN 31.8 pg (25.0-35.0); MEAN CORPUSCULAR HGB CONC 35.1 g/dl (31.0-37.0); MONO # 0.5 (0.1-0.6); RBC 4.47 10^6/uL (3.5-6.1); RED CELL DISTRIBUTION WIDTH 12.3 % (11.5-14.5); WHITE BLOOD COUNT 7.7 10^3/ul (4.5-11.0)
[2017-09-22 10:20] LABS: ALB/GLOB RATIO 1.1 (1.1-1.8); ALBUMIN 4.3 g/dL (3.0-4.8); ALT/SGPT 44 U/L (7-56); AST/SGOT 32 U/L (17-59); BLOOD UREA NITROGEN 9 mg/dL (7-21); CALCIUM 8.9 mg/dL (8.4-10.5); GFR AFRICAN-AMERICAN > 60; GFR NON-AFRICAN AMERICAN > 60
[2017-09-22 10:42] LABS: URINE BILIRUBIN NEGATIVE (NEGATIVE); URINE BLOOD NEGATIVE (NEGATIVE); URINE GLUCOSE (UA) NEGATIVE (NEGATIVE); URINE LEUKOCYTE ESTERASE NEGATIVE Leu/uL (NEGATIVE); URINE PROTEIN NEGATIVE mg/dL (<30 mg/dL)
[2017-09-22 10:43] LABS: URINE APPEARANCE CLEAR (CLEAR); URINE COLOR YELLOW (YELLOW)
--- NOTE | 2017-09-22 10:59 | CT ---
Date of service: 09/22/2017 PROCEDURE: CT Abdomen and Pelvis with contrast HISTORY: diverticulitis COMPARISON: None. TECHNIQUE: Contrast dose: 150 cc of Omni 350 Radiation dose: Total exam DLP = 1224 mGy-cm. This CT exam was performed using one or more of the following dose reduction techniques: Automated exposure control, adjustment of the mA and/or kV according to patient size, and/or use of iterative reconstruction technique. FINDINGS: LOWER THORAX: Unremarkable. LIVER: Unremarkable. No gross lesion or ductal dilatation. GALLBLADDER AND BILE DUCTS: Unremarkable. PANCREAS: Unremarkable. No gross lesion or ductal dilatation. SPLEEN: Unremarkable. ADRENALS: Unremarkable. No mass. KIDNEYS AND URETERS: Unremarkable. No hydronephrosis. No solid mass. VASCULATURE: Unremarkable. No aortic aneurysm. BOWEL: Unremarkable. No obstruction. No gross mural thickening. APPENDIX: Normal appendix. PERITONEUM: Unremarkable. No free fluid. No free air. LYMPH NODES: Unremarkable. No enlarged lymph nodes. BLADDER: Unremarkable. REPRODUCTIVE: Unremarkable. BONES: No acute fracture. OTHER FINDINGS: None. IMPRESSION: No acute findings. No evidence of diverticulitis
--- NOTE | 2017-09-22 11:03 | US ---
Date of service: 09/22/2017 HISTORY: pain, bilateral study TECHNIQUE: Realtime sonography through the scrotum with color and doppler flow. COMPARISON: None Available. FINDINGS: RIGHT TESTICLE: Measures 4.2 x 2.7 x 3.0 cm. Normal echotexture and flow. RIGHT EPIDIDYMIS: Epididymal head measures 0.3 x 0.8 x 1.1 cm. Grossly unremarkable appearance with normal flow. LEFT TESTICLE: Measures 4.5 x 2.2 x 2.8 cm. Normal echotexture and flow. LEFT EPIDIDYMIS: Epididymal head measures 1.1 x 0.5 x 0.9 cm. Grossly unremarkable appearance with normal flow. HYDROCELE: None. VARICOCELE: None. OTHER FINDINGS: None. IMPRESSION: Negative study
[2017-09-22 13:00] VITALS: BP 138/99; RESP 18; O2SAT 99
[2017-09-22 13:01] VITALS: PULSE 92; TEMP 98.1
== END 2017-09-22 13:00 | disposition home or self-care (01) ==
LOC: ED 08:33
DX: J44.9 Chronic obstructive pulmonary disease, unspecified (principal); M54.16 Radiculopathy, lumbar region; F17.210 Nicotine dependence, cigarettes, uncomplicated
CPT/HCPCS: 74177; 80053; 81003; 85025; 93975; 96374; 96375; 99283; J1885; J2270; J7030; Q9967

== ENCOUNTER 2018-04-19 09:00 | Emergency (ER) | payer MEDICAID ==
[2018-04-19 09:10] VITALS: BMI 41.3
[2018-04-19] MEDS ORDERED: Albuterol-Ipratrop 3 mg / 0.5 (3 ml) UD IH STA ×3 (09:21→09:43)
[2018-04-19 10:38] VITALS: RESP 18
--- NOTE | 2018-04-19 10:45 | RAD ---
Date of service: 04/19/2018 HISTORY: SOB/cough COMPARISON: 06/07/2017 FINDINGS: LUNGS: No active pulmonary disease. PLEURA: No significant pleural effusion identified, no pneumothorax apparent. CARDIOVASCULAR: No aortic atherosclerotic calcification present. Normal cardiac size. Mild vascular congestion OSSEOUS STRUCTURES: No significant abnormalities. VISUALIZED UPPER ABDOMEN: Normal. OTHER FINDINGS: None. IMPRESSION: No active disease.
--- NOTE | 2018-04-19 11:28 | ED PDOC ---
Arrival/HPI - General Chief Complaint: Shortness Of Breath Time Seen by Provider: 04/19/18 09:09 Historian: Patient - History of Present Illness Narrative History of Present Illness (Text): 04/19/18 11:25 52yo morbidly obese male with past medical history of COPD who present with complaint of SOB , nonproductive cough x few days. States symptoms are similar to his previous COPD exacerbations. Notes he ran over his inhaler over a month ago, and has not gone to see his PMD. He smokes tobacco. Not steroid dependent. Never intubated. Reports history of admission secondary to COPD in the past. Past Medical History - Provider Review Nursing Documentation Reviewed: Yes - Infectious Disease Hx of Infectious Diseases: None - Tetanus Immunization Tetanus Immunization: Unknown - Cardiac Hx Cardiac Disorders: Yes Hx Peripheral Edema: Yes - Pulmonary Hx Respiratory Disorders: Yes Hx Asthma: Yes Hx Chronic Obstructive Pulmonary Disease (COPD): Yes Hx Emphysema: Yes - Neurological Hx Neurological Disorder: No - HEENT Hx HEENT Disorder: No - Renal Hx Renal Disorder: No - Endocrine/Metabolic Hx Endocrine Disorders: No - Hematological/Oncological Hx Blood Disorders: No Other/Comment: lupus, itp - Integumentary Hx Dermatological Disorder: No - Musculoskeletal/Rheumatological Hx Musculoskeletal Disorders: Yes Hx Arthritis: Yes (hand legs elbows joints) - Gastrointestinal Hx Gastrointestinal Disorders: Yes - Genitourinary/Gynecological Hx Genitourinary Disorders: No - Psychiatric Hx Psychophysiologic Disorder: No Hx Substance Use: Yes (8yrs clean) - Past Surgical History Past Surgical History: No Previous - Surgical History Other/Comment: 200 stitches to left hand, pt was 9 yrs old and fell holding a glass, can't bend index finger - Anesthesia Hx Anesthesia: Yes Hx Anesthesia Reactions: No Hx Malignant Hyperthermia: No - Suicidal Assessment Feels Threatened In Home Enviroment: No Family/Social History - Physician Review Nursing Documentation Reviewed: Yes Family/Social History: Unknown Family HX Smoking Status: Heavy Smoker > 10 Cigarettes Daily Hx Alcohol Use: No (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) Substance used: herion Hx Substance Use Treatment: No Allergies/Home Meds Allergies/Adverse Reactions: Allergies Penicillins Allergy (Verified 04/13/17 13:11) ANAPHYLAXIS Home Medications: Home Meds Medication Instructions Recorded Confirmed RX: Methadone 170 mg PO DAILY 06/07/17 06/07/17 Review of Systems - Physician Review All systems were reviewed & negative as marked: Yes - Review of Systems Constitutional: Normal Eyes: Normal ENT: Normal Respiratory: SOB, Cough, Wheezing Cardiovascular: Normal Gastrointestinal: Normal Genitourinary Male: Normal Musculoskeletal: Normal Skin: Normal Neurological: Normal Endocrine: Normal Hemo/Lymphatic: Normal Psychiatric: Normal Physical Exam Vital Signs Reviewed: Yes Vital Signs Temp Pulse Resp BP Pulse Ox 04/19/18 10:37 71 18 121/76 95 04/19/18 10:11 22 94 L 04/19/18 09:18 98.4 F 76 18 123/83 95 Temperature: Afebrile Blood Pressure: Normal Pulse: Regular Respiratory Rate: Normal Appearance: Positive for: Well-Appearing, Non-Toxic, Comfortable Pain Distress: None Mental Status: Positive for: Alert and Oriented X 3 - Systems Exam Head: Present: Atraumatic, Normocephalic Pupils: Present: PERRL Extroacular Muscles: Present: EOMI Conjunctiva: Present: Normal Mouth: Present: Moist Mucous Membranes Neck: Present: Normal Range of Motion Respiratory/Chest: Present: Good Air Exchange, Wheezes (Diffuse expiratory wheeze). No: Respiratory Distress, Accessory Muscle Use, Decreased Breath Sounds, Rales, Retracting, Rhonchi Cardiovascular: Present: Regular Rate and Rhythm, Normal S1, S2. No: Murmurs Abdomen: No: Tenderness, Distention, Peritoneal Signs Back: Present: Normal Inspection Upper Extremity: Present: Normal Inspection. No: Cyanosis, Edema Lower Extremity: Present: Normal Inspection. No: Edema Neurological: Present: GCS=15, CN II-XII Intact, Speech Normal Skin: Present: Warm, Dry, Normal Color. No: Rashes Psychiatric: Present: Alert, Oriented x 3, Normal Insight, Normal Concentration Medical Decision Making ED Course and Treatment: 04/19/18 11:50 PT in emergency department for stated history. He was not in any respiratory distress Labs Duoneb x3 solu medrol EKG Chest xray EKG NSR @ 76bpm chest xray IMPRESSION: No active disease. On re evaluation pt notes improvement of his symptoms. His lung was CTA b/l He was counselled on smoking cessation He uses oxygen at home, states he ran out and was advised to follow up with his PMD. he was also seen by the bedside by his PMD and was advised to see her in the office Her verbalized understanding. He was ambulatory and speaking in full sentence without distress - RAD Interpretation Radiology Orders: 04/19/18 09:22 CHEST PORTABLE [RAD] Stat - Medication Orders Current Medication Orders: Discontinued Medications Albuterol/Ipratropium (Duoneb 3 Mg/0.5 Mg (3 Ml) Ud) 3 ml IH STAT STA Stop: 04/19/18 09:22 Last Admin: 04/19/18 09:50 Dose: Not Given Non-Admin Reason: Meds given by DORITA Delacruz Albuterol/Ipratropium (Duoneb 3 Mg/0.5 Mg (3 Ml) Ud) 3 ml IH STAT STA Stop: 04/19/18 09:24 Last Admin: 04/19/18 09:50 Dose: 3 ml Albuterol/Ipratropium (Duoneb 3 Mg/0.5 Mg (3 Ml) Ud) 3 ml IH STAT STA Stop: 04/19/18 09:44 Last Admin: 04/19/18 09:52 Dose: 3 ml Methylprednisolone (Solu-Medrol) 125 mg IM STAT STA Stop: 04/19/18 10:52 Last Admin: 04/19/18 10:58 Dose: 125 mg IM Administration Charges Document 04/19/18 10:58 AMA (Rec: 04/19/18 11:02 AMA [id number]) Injection Site MAR Injection Site Right Deltoid Charges for Administration # of IM Administrations 1 Disposition/Present on Arrival - Present on Arrival Any Indicators Present on Arrival: No History of DVT/PE: No History of Uncontrolled Diabetes: No Urinary Catheter: No History of Decub. Ulcer: No History Surgical Site Infection Following: None - Disposition Have Diagnosis and Disposition been Completed?: Yes Diagnosis: COPD exacerbation Disposition: HOME/ ROUTINE Disposition Time: 11:30 Patient Plan: Discharge Condition: STABLE Discharge Instructions (ExitCare): Exacerbation of COPD Additional Instructions: Follow up with your Doctor Return to emergency department for any new or worsening symptoms Prescriptions: RX: Albuterol HFA [Ventolin HFA 90 mcg/actuation (8 g)] 2 puff IH [id number] #1 puff Montelukast [Singulair] 10 mg PO DAILY #20 tab RX: Prednisone 50 mg PO DAILY #5 tab Referrals: Molly Aguirre MD [Family Provider] - Follow up with primary Forms: [employer] (Nepali)
[2018-04-19 11:55] VITALS: BP 141/75; PULSE 75; TEMP 98; O2SAT 91
--- NOTE | 2018-04-19 17:10 | CARD ---
APPROVED REPORT Date of service: 04/19/2018 EKG Measurement Heart [id number] [id number] <Conclusion> Poor data quality, interpretation may be adversely affected Normal sinus rhythm Normal ECG
== END 2018-04-19 11:54 | disposition home or self-care (01) ==
LOC: ED 09:00
DX: J44.1 Chronic obstructive pulmonary disease with (acute) exacerbation (principal); E66.01 Morbid (severe) obesity due to excess calories; F17.210 Nicotine dependence, cigarettes, uncomplicated; M32.9 Systemic lupus erythematosus, unspecified; Z99.81 Dependence on supplemental oxygen
CPT/HCPCS: 71045; 93005; 96372; 99283; J2930

== ENCOUNTER 2018-05-14 07:54 | Emergency (ER) | payer MEDICAID ==
[2018-05-14 07:57] VITALS: BMI 40.8
[2018-05-14 08:06] VITALS: RESP 20
[2018-05-14] MEDS ORDERED: MethylPREDNISolone 40 mg Vial IVP STA (08:25)
--- NOTE | 2018-05-14 08:31 | ED PDOC ---
Arrival/HPI - General Chief Complaint: Shortness Of Breath Time Seen by Provider: 05/14/18 07:57 Historian: Patient - History of Present Illness Narrative History of Present Illness (Text): 05/14/18 08:24 52 year old male smoker, whose past medical history includes asthma/COPD and chronic lower extremity edema, SHERI, presents to the emergency department complaining of shortness of breath secondary to asthma that began 1-2 hours ago. Patient reports he was given treatments enroute to ER which helped elevate the symptoms. Patient reports the symptoms is his typically asthma episodes. Patient also reports cough and wheezing, but denies any fever, chills, chest pain, nausea, vomiting, diarrhea, urinary symptoms, back pain, neck pain, headache, dizziness, or any other complaints. PMD: Dr. Meadows Time/Duration: Other (1-2 hours ) Symptom Onset: Gradual Symptom Course: Improving Activities at Onset: Light Context: Home Past Medical History - Provider Review Nursing Documentation Reviewed: Yes - Infectious Disease Hx of Infectious Diseases: None - Tetanus Immunization Tetanus Immunization: Unknown - Cardiac Hx Cardiac Disorders: Yes Hx Peripheral Edema: Yes - Pulmonary Hx Respiratory Disorders: Yes Hx Asthma: Yes Hx Chronic Obstructive Pulmonary Disease (COPD): Yes Hx Emphysema: Yes - Neurological Hx Neurological Disorder: No - HEENT Hx HEENT Disorder: No - Renal Hx Renal Disorder: No - Endocrine/Metabolic Hx Endocrine Disorders: No - Hematological/Oncological Hx Blood Disorders: No Other/Comment: lupus, itp - Integumentary Hx Dermatological Disorder: No - Musculoskeletal/Rheumatological Hx Musculoskeletal Disorders: Yes Hx Arthritis: Yes (hand legs elbows joints) - Gastrointestinal Hx Gastrointestinal Disorders: Yes - Genitourinary/Gynecological Hx Genitourinary Disorders: No - Psychiatric Hx Psychophysiologic Disorder: No Hx Substance Use: Yes (8yrs clean) - Past Surgical History Past Surgical History: No Previous - Surgical History Other/Comment: 200 stitches to left hand, pt was 9 yrs old and fell holding a glass, can't bend index finger - Anesthesia Hx Anesthesia: Yes Hx Anesthesia Reactions: No Hx Malignant Hyperthermia: No - Suicidal Assessment Feels Threatened In Home Enviroment: No Family/Social History - Physician Review Nursing Documentation Reviewed: Yes Family/Social History: No Known Family HX Smoking Status: Heavy Smoker > 10 Cigarettes Daily Hx Alcohol Use: No (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) Substance used: epifanio Hx Substance Use Treatment: No Allergies/Home Meds Allergies/Adverse Reactions: Allergies Penicillins Allergy (Verified 04/13/17 13:11) ANAPHYLAXIS Home Medications: Home Meds Medication Instructions Recorded Confirmed Methadone 170 mg PO DAILY 06/07/17 06/07/17 Review of Systems - Physician Review All systems were reviewed & negative as marked: Yes - Review of Systems Constitutional: absent: Fevers, Other (chills) Respiratory: SOB, Cough, Wheezing Cardiovascular: absent: Chest Pain Gastrointestinal: absent: Diarrhea, Nausea, Vomiting Genitourinary Male: absent: Dysuria, Frequency, Hematuria Musculoskeletal: absent: Back Pain, Neck Pain Neurological: absent: Headache, Dizziness Physical Exam - Physical Exam Narrative Physical Exam (Text): Gen: VS reviewed, alert, well developed, well nourished, nontoxic, mild distress. ENT: normal pharynx. Eye: EOMI, PERRL. Neck: no JVD, supple, no adenopathy. CV: regular rate, regular rhythm, no rubs, no murmur, no gallops, S1, S2, pulses equal and strong. Pulm: Mild bilateral expiratory wheeze. no distress, no rhonchi, breath sounds equal, no rales. Abd: soft, nontender, no guarding, no rebound, no rigidity, normal bowel sounds. Ext: Bilateral LE Edema Skin: good color, no rash, no cyanosis. Psych: responds appropriately to questions, normal affect. Neuro: oriented x 3, CN2-12 intact grossly, motor intact, sensation intact. Vital Signs Reviewed: Yes Vital Signs Temp Pulse Resp BP Pulse Ox 05/14/18 08:20 20 90 L 05/14/18 08:05 97.6 F 80 20 134/93 H 90 L Temperature: Afebrile Blood Pressure: Hypertensive Pulse: Regular Respiratory Rate: Normal Medical Decision Making ED Course and Treatment: 05/14/18 08:24 Impression: 52 year old male presents complaining of shortness of breath secondary to his asthma associated with cough and wheezing that began 1-2 hours prior to arrival. Plan: -- EKG -- Labs -- Chest X-ray -- DuCynthia barkeru-andrew -- Reassess and disposition Prior Visits: Notes and results from previous visits were reviewed. Progress Notes: 05/14/18 10:18 patient was seen for dyspnea, wheezing, still smoking, copd exacerbation. patient did not exhibit and s/s of respiratory distress, pulse ox adequate incluiding ambulatory. patient treated with systemic corticosteroids and serial bronchodilators, patient exhibit modest improvement in symptoms and was recommended to stay in the hospital. patient does not want to stay, states it is his birthday and cannot stay.patient states he needs refills of medications. MA: ADMIT NEEDED The patient refuses admission and wishes to leave the Emergency Department against my medical advice. Patient was told that admission to the hospital is necessary and a full explanation of the reasons why was given, and understood by patient. The risks of leaving were explained and include worsening of condition, and permanent disability and from an undiagnosed or untreated condition. The patient accepts these risks, and is in my judgement is competent and capable of understanding the clinical situation and my explanation of the risks of leaving. Patient was given the opportunity to ask questions and change mind. The patient was instructed regarding the best care for the present symptoms, and to follow up with pcp as soon as possible, or return to the Emergency Department at any time for continuing care. - Lab Interpretations I have reviewed the lab results: Yes - RAD Interpretation Mortgage Professional: Radiologist - EKG Interpretation EKG Interpretation (Text): 05/14/18 08:24 NSR @ 80 bpm, nml qrs, nml axis, no acute sttw abn. Interpreted by ED Physician: Yes Type: 12 lead EKG - Scribe Statement The provider has reviewed the documentation as recorded by the Karla Gibbons Provider Scribe Attestation: All medical record entries made by the Karla were at my direction and personally dictated by me. I have reviewed the chart and agree that the record accurately reflects my personal performance of the history, physical exam, medical decision making, and the department course for this patient. I have also personally directed, reviewed, and agree with the discharge instructions and disposition. Disposition/Present on Arrival - Present on Arrival Any Indicators Present on Arrival: No History of DVT/PE: No History of Uncontrolled Diabetes: No Urinary Catheter: No History of Decub. Ulcer: No History Surgical Site Infection Following: None - Disposition Have Diagnosis and Disposition been Completed?: Yes Diagnosis: COPD exacerbation Disposition: AGAINST MEDICAL ADVICE Disposition Time: 10:22 Patient Plan: Discharge Condition: STABLE Discharge Instructions (ExitCare): Quitting Smoking Additional Instructions: you must stop smoking. you especially do not want to smoke if you are supposed to be on oxygen at home. return for any new or worsening symptoms. follow up with your primary care doctor as soon as possible. Prescriptions: Albuterol HFA [Ventolin HFA 90 mcg/actuation (8 g)] 1 puff IH Q4H #1 inhaler Albuterol/Ipratropium [Duoneb 3 MG/3 Ml-0.5 MG/3 Ml 3 Ml] 1 ea IH Q4H #1 neb Levofloxacin [Levaquin] 750 mg PO DAILY #5 tablet Prednisone [Deltasone] 20 mg PO DAILY 5 Days #10 tablet Referrals: Daniel Meadows MD [Primary Care Provider] - Follow up with primary Forms: [facility] (Pashto), WORK NOTE
[2018-05-14] MEDS: Albuterol-Ipratrop 3 mg / 0.5 (3 ml) UD IH SCH ×3 (08:32→09:25)
[2018-05-14 08:58] LABS: BASO # 0.02 K/mm3 (0.0-2.0); BASO % 0.2 % (0.0-3.0); EOS # 0.2 (0.0-0.7); HEMOGLOBIN 13.2 g/dL (14.0-18.0); LYMPH # 1.6 (1.2-3.4); LYMPH % 16.5 % (22.0-35.0); MEAN CORPUSCULAR HEMOGLOBIN 31.2 pg (25.0-35.0); MEAN CORPUSCULAR HGB CONC 32.8 g/dl (31.0-37.0); MEAN PLATELET VOLUME 11.1 fl (7.0-11.0); MONO # 0.4 (0.1-0.6); MONO % 4.4 % (1.0-6.0); RBC 4.23 10^6/uL (3.5-6.1); RED CELL DISTRIBUTION WIDTH 12.5 % (11.5-14.5); WHITE BLOOD COUNT 9.5 10^3/uL (4.5-11.0)
[2018-05-14 09:05] LABS: INR 1.04; PARTIAL THROMBOPLASTIN TIME 37.1 Seconds (26.9-38.3); PROTHROMBIN TIME 11.7 SECONDS (9.4-12.5)
[2018-05-14 09:06] LABS: ALB/GLOB RATIO 1.2 (1.1-1.8); ALBUMIN 4.3 g/dL (3.0-4.8); ALT/SGPT 26 U/L (7-56); AST/SGOT 36 U/L (17-59); BLOOD UREA NITROGEN 11 mg/dL (7-21); CALCIUM 8.7 mg/dL (8.4-10.5); GFR NON-AFRICAN AMERICAN > 60
[2018-05-14 09:17] LABS: B-TYPE NATRIURETIC PEPTIDE 65.2 pg/mL (0-450); TROPONIN I < 0.01 ng/mL
[2018-05-14 10:26] VITALS: BP 149/88; PULSE 86; TEMP 97.9; O2SAT 94
--- NOTE | 2018-05-14 11:29 | RAD ---
Date of service: 05/14/2018 HISTORY: chf COMPARISON: 04/19/2018 FINDINGS: LUNGS: No active pulmonary disease. PLEURA: No significant pleural effusion identified, no pneumothorax apparent. CARDIOVASCULAR: No aortic atherosclerotic calcification present. Normal cardiac size. No pulmonary vascular congestion. OSSEOUS STRUCTURES: No significant abnormalities. VISUALIZED UPPER ABDOMEN: Normal. OTHER FINDINGS: None. IMPRESSION: No active disease.
--- NOTE | 2018-05-14 17:29 | CARD ---
APPROVED REPORT Date of service: 05/14/2018 EKG Measurement Heart [id number] [id number] <Conclusion> Normal sinus rhythm Normal ECG
== END 2018-05-14 10:22 | disposition left against medical advice (07) ==
LOC: ED 07:54
DX: J44.1 Chronic obstructive pulmonary disease with (acute) exacerbation (principal); G47.33 Obstructive sleep apnea (adult) (pediatric); F17.210 Nicotine dependence, cigarettes, uncomplicated; M32.9 Systemic lupus erythematosus, unspecified
CPT/HCPCS: 71045; 80053; 83735; 83880; 84484; 85025; 85610; 85730; 93005; 96374; 99285; J2920

== ENCOUNTER 2018-07-18 15:18 | Emergency (ER) | payer MEDICAID ==
[2018-07-18 15:19] VITALS: BMI 40.8
--- NOTE | 2018-07-18 15:29 | ED PDOC ---
Arrival/HPI - General Chief Complaint: Shortness Of Breath Time Seen by Provider: 07/18/18 15:25 Historian: Patient - Critical Care Critical Care Minutes: 30 minutes Critical Care Time: Unstable Narrative Critical Care (Text): 07/18/18 15:26 hypoxic/tachypnea, wheezing, duonebx3 and IV solumedrol, continuous bedside assessment and continuous chief of surgery - History of Present Illness Narrative History of Present Illness (Text): 07/18/18 15:27 53 y/o male, pmh including asthma/copd/htn, penicillin allergy, +smoker, c/o coughing x 1 week and wheezing started today. Pt. stated that he has been coughing x 1 week, associated with wheezing and more worsened today, still smoking about half pack a cigarette a day, no night sweat, no palpitation, feels chest tightness, no pleuritic pain, no numbness or tingling, no tearing sensation intact, no other medical or psychological complaints. Past Medical History - Provider Review Nursing Documentation Reviewed: Yes - Infectious Disease Hx of Infectious Diseases: None - Tetanus Immunization Tetanus Immunization: Unknown - Cardiac Hx Cardiac Disorders: Yes Hx Peripheral Edema: Yes - Pulmonary Hx Respiratory Disorders: Yes Hx Asthma: Yes Hx Chronic Obstructive Pulmonary Disease (COPD): Yes Hx Emphysema: Yes - Neurological Hx Neurological Disorder: No - HEENT Hx HEENT Disorder: No - Renal Hx Renal Disorder: No - Endocrine/Metabolic Hx Endocrine Disorders: No - Hematological/Oncological Hx Blood Disorders: No Other/Comment: lupus, itp - Integumentary Hx Dermatological Disorder: No - Musculoskeletal/Rheumatological Hx Musculoskeletal Disorders: Yes Hx Arthritis: Yes (hand legs elbows joints) - Gastrointestinal Hx Gastrointestinal Disorders: Yes - Genitourinary/Gynecological Hx Genitourinary Disorders: No - Psychiatric Hx Psychophysiologic Disorder: No Hx Substance Use: Yes (8yrs clean) - Past Surgical History Past Surgical History: No Previous - Surgical History Other/Comment: 200 stitches to left hand, pt was 9 yrs old and fell holding a glass, can't bend index finger - Anesthesia Hx Anesthesia: Yes Hx Anesthesia Reactions: No Hx Malignant Hyperthermia: No - Suicidal Assessment Feels Threatened In Home Enviroment: No Family/Social History - Physician Review Nursing Documentation Reviewed: Yes Family/Social History: Unknown Family HX Smoking Status: Heavy Smoker > 10 Cigarettes Daily Hx Alcohol Use: No (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) Substance used: herion Hx Substance Use Treatment: No Allergies/Home Meds Allergies/Adverse Reactions: Allergies Penicillins Allergy (Verified 07/18/18 15:20) ANAPHYLAXIS Home Medications: Home Meds Medication Instructions Recorded Confirmed Methadone 170 mg PO DAILY 06/07/17 07/18/18 Review of Systems - Review of Systems Constitutional: absent: Fatigue, Fevers Eyes: absent: Vision Changes ENT: absent: Hearing Changes Respiratory: SOB, Cough, Sputum, Wheezing Cardiovascular: absent: Chest Pain Gastrointestinal: absent: Abdominal Pain, Diarrhea, Nausea, Vomiting Musculoskeletal: absent: Arthralgias, Back Pain Skin: absent: Rash, Pruritis Neurological: absent: Headache, Dizziness, Speech Changes Endocrine: absent: Diaphoresis, Polyuria Psychiatric: absent: Anxiety, Depression, Suicidal Ideation Physical Exam Vital Signs Reviewed: Yes Vital Signs Temp Pulse Resp BP Pulse Ox 07/18/18 15:25 98.1 F 82 20 159/82 H 96 Temperature: Afebrile Blood Pressure: Hypertensive Pulse: Regular Respiratory Rate: Normal Appearance: Positive for: Well-Appearing, Non-Toxic, Comfortable Pain Distress: None Mental Status: Positive for: Alert and Oriented X 3 - Systems Exam Head: Present: Atraumatic, Normocephalic Pupils: Present: PERRL Extroacular Muscles: Present: EOMI Conjunctiva: Present: Normal Mouth: Present: Moist Mucous Membranes Nose (External): Present: Atraumatic. No: Abrasion, Contusion, Laceration Nose (Internal): Present: Normal Inspection, No Active Bleeding. No: Rhinorrhea, Septal Hematoma, Epistaxis Neck: Present: Normal Range of Motion, Trachea Midline. No: Meningeal Signs, MIDLINE TENDERNESS, Paraspinal Tenderness, Lymphadenopathy Respiratory/Chest: Present: Wheezes, Decreased Breath Sounds, Rhonchi. No: Respiratory Distress, Accessory Muscle Use, Rales, Retracting, Tachypneic, T keila to Palpation Cardiovascular: Present: Regular Rate and Rhythm, Normal S1, S2, Other (1+ pedal edema noted bilaterally with no cellulitis or ulcer). No: Murmurs Abdomen: Present: Normal Bowel Sounds. No: Tenderness, Distention, Peritoneal Signs, Rebound, Guarding, McBurney's Point Tender Back: Present: Normal Inspection. No: CVA Tenderness, Midline Tenderness, Paraspinal Tenderness, Pain with Leg Raise, Decubitus Ulcer Upper Extremity: Present: Normal Inspection. No: Cyanosis, Edema Lower Extremity: Present: Normal Inspection, NORMAL PULSES, Normal ROM, Neurovascularly Intact. No: Edema, Tenderness, Swelling, Deformity Neurological: Present: GCS=15, CN II-XII Intact, Speech Normal, Motor Func Grossly Intact, Normal Cerebellar Funct, Gait Normal, Memory Normal Skin: Present: Warm, Dry, Normal Color. No: Rashes Psychiatric: Present: Alert, Oriented x 3, Normal Insight, Normal Concentration Medical Decision Making ED Course and Treatment: 07/18/18 15:30 -Labs -EKG -Chest xray -IV solumedrol/duoneb x 3 -chief of surgery -Observe and reassess 07/18/18 16:31 -EKG: NSR @ 96 BPM, no ST elevation or depression, no T wave inversion. -Chest xray No active pulmonary disease. -Labs are non significant -BNP within normal limit -Trop is negative after 24 hours. -Lung is still wheezing, hypoxic around 92-98 percent on the rest and room air, hypoxic -Pt. still feels wheezing but more comfortable than before -Aspirin 325mg po ordered 07/18/18 16:36 -Pt. refused to be admitted or stay at the hospital for any additional labs/radiology studies or continue medical care, at the bed side and agreed with any decision the made. AMA ER The patient refuses to stay in the Emergency Room (ER) to continue the care and wishes to leave the emergency department against my medical advice. Patient was told that staying in the ER is necessary and a full explanation of the reasons why was given, and understood by the patient with alert and oriented x4. The risk of leaving were explained in laymans term and including but not limited to pulmonary embolism, cardiopulmonary distress and/or failure, hypoxic, brain damage, organ or organs failure, myocardial infraction, ischemia, pain, worsening of condition, permanent disability and from an undiagnosed or untreated condition. The patient accepts these risks, and is in my judgment is competent and capable of understanding the clinical situation and explanation of the risk of leaving. The patient is able to verbally repeated me back the above explained risks and benefits back to me, and verbally expressed understanding. Patient was given the opportunity to ask questions and change mind. The patient was instructed regarding the best care for the present symptoms, and to follow up as soon as possible with the primary care doctor including specialist or return to the emergency department at any time for continuing care. -You sign out against medical advice. You are given zithromax, prednisone, albuterol but this is not the standard of care. Follow up with your own pmd and school cafeteria head cook and mutual fund analyst within 2 days, return to the ER for any new or worsening signs or symptoms. - RAD Interpretation Radiology Orders: Date of service: 07/18/2018 HISTORY: medical clearance COMPARISON: 05/14/2018 FINDINGS: LUNGS: The lungs are well inflated. There is mild pulmonary venous congestion PLEURA: No pleural effusions or pneumothorax. CARDIOVASCULAR: There is mild cardiomegaly. No aortic atherosclerotic calcifications present. OSSEOUS STRUCTURES: Within normal limits for the patient's age. VISUALIZED UPPER ABDOMEN: Normal. OTHER FINDINGS: There is chronic elevation of the right hemidiaphragm. IMPRESSION: No active pulmonary disease. Unix Developer: Radiologist - PA / CORPORATE SCHEDULER / Resident Statement MD/DO has reviewed & agrees with the documentation as recorded. Disposition/Present on Arrival - Present on Arrival Any Indicators Present on Arrival: No History of DVT/PE: No History of Uncontrolled Diabetes: No Urinary Catheter: No History of Decub. Ulcer: No History Surgical Site Infection Following: None - Disposition Have Diagnosis and Disposition been Completed?: Yes Diagnosis: Asthma exacerbation with COPD (chronic obstructive pulmonary disease), Hypoxic, Non-compliance Disposition: AGAINST MEDICAL ADVICE Disposition Time: 16:32 Patient Plan: Telemetry Condition: GUARDED Additional Instructions: You sign out against medical advice. You are given zithromax, prednisone, albuterol but this is not the standard of care. Follow up with your own pmd and school cafeteria head cook and mutual fund analyst within 2 days, return to the ER for any new or worsening signs or symptoms. Prescriptions: Albuterol HFA [Ventolin HFA 90 mcg/actuation (8 g)] 2 puff IH [id number] PRN #1 inhaler PRN Reason: Other Azithromycin [Zithromax] 250 mg PO DAILY #6 tab Prednisone 50 mg PO DAILY #5 tablet Referrals: Sara Montaño MD [Staff Provider] - Follow up with primary Kunal Newberry MD [Staff Provider] - [place] up [place] primary [facility] [place] - Follow up with primary Forms: [employer] [facility] (Honduran), WORK NOTE
[2018-07-18] MEDS: Albuterol-Ipratrop 3 mg / 0.5 (3 ml) UD IH SCH ×3 (15:45→16:10)
[2018-07-18 15:49] LABS: BASO # 0.02 K/mm3 (0.0-2.0); BASO % 0.2 % (0.0-3.0); EOS # 0.3 (0.0-0.7); HEMOGLOBIN 13.5 g/dL (14.0-18.0); LYMPH # 2.7 (1.2-3.4); LYMPH % 21.9 % (22.0-35.0); MEAN CELL VOLUME 94.2 fl (80.0-105.0); MEAN CORPUSCULAR HEMOGLOBIN 31.3 pg (25.0-35.0); MEAN CORPUSCULAR HGB CONC 33.2 g/dl (31.0-37.0); MEAN PLATELET VOLUME 10.8 fl (7.0-11.0); MONO # 0.7 (0.1-0.6); MONO % 5.4 % (1.0-6.0); RBC 4.32 10^6/uL (3.5-6.1); RED CELL DISTRIBUTION WIDTH 13.1 % (11.5-14.5); WHITE BLOOD COUNT 12.5 10^3/uL (4.5-11.0)
--- NOTE | 2018-07-18 16:02 | RAD ---
Date of service: 07/18/2018 HISTORY: medical clearance COMPARISON: 05/14/2018 FINDINGS: LUNGS: The lungs are well inflated. There is mild pulmonary venous congestion PLEURA: No pleural effusions or pneumothorax. CARDIOVASCULAR: There is mild cardiomegaly. No aortic atherosclerotic calcifications present. OSSEOUS STRUCTURES: Within normal limits for the patient's age. VISUALIZED UPPER ABDOMEN: Normal. OTHER FINDINGS: There is chronic elevation of the right hemidiaphragm. IMPRESSION: No active pulmonary disease.
[2018-07-18 16:06] LABS: ALB/GLOB RATIO 1.1 (1.1-1.8); ALBUMIN 4.3 g/dL (3.0-4.8); ALT/SGPT 29 U/L (7-56); AST/SGOT 28 U/L (17-59); BLOOD UREA NITROGEN 14 mg/dL (7-21); CALCIUM 8.9 mg/dL (8.4-10.5); GFR NON-AFRICAN AMERICAN > 60
[2018-07-18 16:16] LABS: B-TYPE NATRIURETIC PEPTIDE 114 pg/mL (0-450); TROPONIN I < 0.01 ng/mL
[2018-07-18] MEDS ORDERED: Magnesium Sulfate 2 gm/50 ml 2 GM/50 ML BAG IVPB ONE (16:31)
[2018-07-18 16:55] VITALS: BP 124/53; PULSE 85; RESP 18; TEMP 98; O2SAT 99
--- NOTE | 2018-07-19 09:15 | CARD ---
APPROVED REPORT Date of service: 07/18/2018 EKG Measurement Heart [id number] <Conclusion> Poor data quality, interpretation may be adversely affected Normal sinus rhythm Prolonged QT Abnormal ECG
== END 2018-07-18 16:54 | disposition left against medical advice (07) ==
LOC: ED 15:18
DX: J44.9 Chronic obstructive pulmonary disease, unspecified (principal); J45.901 Unspecified asthma with (acute) exacerbation; R09.02 Hypoxemia; Z91.19 Patient's noncompliance with other medical treatment and regimen; I10 Essential (primary) hypertension; F17.210 Nicotine dependence, cigarettes, uncomplicated
CPT/HCPCS: 71045; 80053; 83735; 83880; 84484; 85025; 93005; 94640; 96374; 99291; J2930